=== PATIENT | male | born 1995 | race Caucasian/White ===

== ENCOUNTER 2016-12-08 06:17 | Inpatient (IN) | payer BC, MEDICAID ==
[~2016-12-08] VITALS: Ht 162.6 cm; Wt 100.8 kg
[2016-12-08] MEDS ORDERED: INSLAN SQ (06:35)
[2016-12-08] MEDS ORDERED: INSU100C14 SQ (06:35)
[2016-12-08 06:38] LABS: GLUCOSE COMMENT 1 Doctor Notified; GLUCOSE,POINT OF CARE 483 MG/DL (70-110)
[2016-12-08] MEDS ORDERED: SODIUM CHLORIDE 0.9% 1,000 ML IV ONE (07:00)
[2016-12-08 07:10] LABS: BASOPHILS % (AUTO) 0.4 % (0.0-2.0); EOSINOPHILS % (AUTO) 0.8 % (1.0-6.0); HEMATOCRIT 42.3 % (41-53); HEMOGLOBIN 14.6 g/dL (13.5-17.5); LYMPHOCYTES # (AUTO) 1.7 K/uL (1.0-4.8); LYMPHOCYTES % (AUTO) 11.5 % (22.0-44.0); MEAN CORPUSCULAR HEMOGLOBIN 30.2 pg (26.0-34.0); MEAN CORPUSCULAR HGB CONC 34.6 G/dL (31.0-37.0); MEAN CORPUSCULAR VOLUME 87 fL (80-100); MONOCYTES # (AUTO) 0.7 K/uL (0.1-1.0); NEUTROPHILS # (AUTO) 12.2 K/uL (1.8-7.7); NEUTROPHILS % (AUTO) 82.3 % (40.0-70.0); PLATELET COUNT (AUTO) 297 K/uL (150-450); RED BLOOD CELL COUNT(AUTO) 4.84 MIL/uL (4.50-5.90); RED CELL DISTRIBUTION WIDTH 12.5 % (11.5-14.5); WHITE BLOOD COUNT (AUTO) 14.8 K/uL (4.5-11.0)
[2016-12-08 07:31] LABS: ALANINE AMINOTRANSFERASE 61 U/L (12-78); ALBUMIN 4.1 g/dL (3.4-5.0); ANION GAP 15 mmol/L (8-16); ASPARTATE AMINOTRANSFERASE 49 U/L (15-37); BILIRUBIN,TOTAL 0.9 mg/dL (0.1-1.0); CALCIUM, TOTAL 8.9 mg/dL (8.8-10.5); CARBON DIOXIDE 20 mmol/L (22-29); CHLORIDE 99 mmol/L (98-107); CREATININE 1.24 mg/dL (0.60-1.30); GLOMERULAR FILTR. RATE CALC > 60 mL/min (>60); POTASSIUM 4.4 mmol/L (3.5-5.1); SODIUM SERUM 134 mmol/L (136-145); TOTAL PROTEIN, SERUM 7.8 g/dL (6.4-8.2); UREA NITROGEN, BLOOD 13 mg/dL (7-18)
[2016-12-08 09:03] LABS: GLUCOSE,POINT OF CARE 362 MG/DL (70-110)
[2016-12-08] MEDS ORDERED: MAGNESIUM HYDROXIDE SUSPENSION 30 ML UDCUP PO PRN (10:00)
[2016-12-08] MEDS ORDERED: ZOLPIDEM TARTRATE 10 MG TABLET PO PRN (10:00)
[2016-12-08] MEDS ORDERED: TUBERCULIN, PURIFIED PROTEIN DERIVATIVE 5 TU/0.1 ML SYG ID ONE (10:00)
[2016-12-08] MEDS ORDERED: PROMETHAZINE HCL 25 MG TABLET PO PRN (10:00)
[2016-12-08] MEDS ORDERED: ACETAMINOPHEN 325 MG TABLET PO PRN (10:00)
[2016-12-08] MEDS ORDERED: MAG HYDROX/AL HYDROX/SIMETH ES 30 ML SUSPENSION UDCUP PO PRN (10:00)
[2016-12-08] MEDS ORDERED: QUEtiapine FUMARATE 100 MG TABLET PO PRN (10:00)
[2016-12-08] MEDS ORDERED: GuaiFENesin/D-METHORPHAN [SUGAR-FREE] 200-20MG/10 ML SYRUP UDCUP PO PRN (10:00)
[2016-12-08] MEDS ORDERED: LORazepam 2 MG TABLET PO PRN (10:00)
[2016-12-08] MEDS ORDERED: LOPERAMIDE HCL 2 MG CAPSULE PO PRN (10:00)
[2016-12-08] MEDS ORDERED: HydrOXYzine PAMOATE 50 MG CAPSULE PO PRN (10:00)
[2016-12-08] MEDS ORDERED: DEXTROSE 50%-WATER 25 GM/50 ML SYRINGE IVP PRN (12:00)
[2016-12-08 12:35] VITALS: BP 118/76
[2016-12-08] MEDS ORDERED: INSULIN PUMP HUMALOG CLINICAL PRN (14:00)
[2016-12-08 20:28] LABS: GLUCOSE,POINT OF CARE 156 MG/DL (70-110)
[2016-12-08 20:28] LABS: GLUCOSE COMMENT 1 Juice/Food/D50 Given; GLUCOSE,POINT OF CARE 45 MG/DL (70-110)
[2016-12-08 20:28] LABS: GLUCOSE,POINT OF CARE 259 MG/DL (70-110)
[2016-12-09 05:57] LABS: GLUCOSE,POINT OF CARE 160 MG/DL (70-110)
[2016-12-09 06:02] LABS: ALANINE AMINOTRANSFERASE 50 U/L (12-78); ALBUMIN 3.5 g/dL (3.4-5.0); ANION GAP 8 mmol/L (8-16); ASPARTATE AMINOTRANSFERASE 38 U/L (15-37); BILIRUBIN,TOTAL 0.5 mg/dL (0.1-1.0); CALCIUM, TOTAL 8.4 mg/dL (8.8-10.5); CARBON DIOXIDE 28 mmol/L (22-29); CHLORIDE 105 mmol/L (98-107); CHOL/HDL RATIO 3.9 (4.2-7.3); CREATININE 1.01 mg/dL (0.60-1.30); GLOMERULAR FILTR. RATE CALC > 60 mL/min (>60); POTASSIUM 4.3 mmol/L (3.5-5.1); SODIUM SERUM 141 mmol/L (136-145); THYROID STIMULATING HORMONE 1.17 uIU/mL (0.36-3.74); TOTAL PROTEIN, SERUM 6.7 g/dL (6.4-8.2); UREA NITROGEN, BLOOD 9 mg/dL (7-18)
[2016-12-09 06:09] LABS: BASOPHILS % (AUTO) 0.4 % (0.0-2.0); EOSINOPHILS % (AUTO) 2.9 % (1.0-6.0); HEMATOCRIT 44.5 % (41-53); HEMOGLOBIN 14.9 g/dL (13.5-17.5); LYMPHOCYTES # (AUTO) 4.1 K/uL (1.0-4.8); LYMPHOCYTES % (AUTO) 36.8 % (22.0-44.0); MEAN CORPUSCULAR HEMOGLOBIN 29.9 pg (26.0-34.0); MEAN CORPUSCULAR HGB CONC 33.5 G/dL (31.0-37.0); MEAN CORPUSCULAR VOLUME 89 fL (80-100); MONOCYTES # (AUTO) 0.6 K/uL (0.1-1.0); NEUTROPHILS # (AUTO) 6.2 K/uL (1.8-7.7); NEUTROPHILS % (AUTO) 54.9 % (40.0-70.0); PLATELET COUNT (AUTO) 282 K/uL (150-450); RED BLOOD CELL COUNT(AUTO) 4.99 MIL/uL (4.50-5.90); RED CELL DISTRIBUTION WIDTH 13.1 % (11.5-14.5); WHITE BLOOD COUNT (AUTO) 11.3 K/uL (4.5-11.0)
[2016-12-09 06:48] LABS: HEMOGLOBIN A1C 8.8 % (4.5-6.2)
[2016-12-09] MEDS ORDERED: MULTIVITAMINS WITH MINERALS, THERAPEUTIC TABLET PO SCH (09:00)
[2016-12-09] MEDS ORDERED: FOLIC ACID 1 MG TABLET PO SCH (09:00)
[2016-12-09] MEDS ORDERED: FLUoxetine HCL 20 MG CAPSULE PO SCH (09:00)
[2016-12-09] MEDS: THIAMINE HCL 100 MG TABLET PO SCH ×2 (09:00→09:13)
[2016-12-09] MEDS ORDERED: INSULIN ASPART 100 UNITS/ML SQ PRN ×2 (10:30→15:00)
[2016-12-09 11:13] LABS: GLUCOSE,POINT OF CARE 535 MG/DL (70-110)
[2016-12-09] MEDS ORDERED: INSULIN DETEMIR 100 UNITS/ML SQ SCH ×2 (11:15→21:00)
[2016-12-09] MEDS ORDERED: INSULIN ASPART 100 UNITS/ML SQ ONE ×2 (11:15→12:45)
[2016-12-09 12:27] LABS: GLUCOSE COMMENT 1 Doctor Notified; GLUCOSE,POINT OF CARE > 600 MG/DL (70-110)
[2016-12-09 14:02] LABS: GLUCOSE,POINT OF CARE 540 MG/DL (70-110)
[2016-12-09 14:47] LABS: GLUCOSE,POINT OF CARE 392 MG/DL (70-110)
[2016-12-09] MEDS ORDERED: SODIUM CHLORIDE 0.9% 1,000 ML IV ONE (15:00)
[2016-12-09] MEDS ORDERED: ZOLPIDEM TARTRATE 5 MG TABLET PO PRN (15:00)
[2016-12-09] MEDS ORDERED: MAGNESIUM HYDROXIDE SUSPENSION 30 ML UDCUP PO PRN (15:00)
[2016-12-09] MEDS ORDERED: MORPHINE SULFATE 2 MG/ML SYRINGE IVP PRN (15:00)
[2016-12-09] MEDS ORDERED: DEXTROSE 50%-WATER 25 GM/50 ML SYRINGE IVP PRN (15:00)
[2016-12-09] MEDS ORDERED: ONDANSETRON HCL 4 MG/2 ML VIAL IVP PRN (15:00)
[2016-12-09] MEDS ORDERED: ACETAMINOPHEN 325 MG TABLET PO PRN (15:00)
[2016-12-09] MEDS ORDERED: HYDROCODONE/ACETAMINOPHEN 5-325 MG TABLET PO PRN (15:00)
[2016-12-09] MEDS ORDERED: BISACODYL 10 MG RECTAL RECTAL SUPPOSITORY PR PRN (15:00)
[2016-12-09 16:35] VITALS: BP 164/80
[2016-12-09] MEDS ORDERED: DOCUSATE SODIUM 100 MG CAPSULE PO SCH (21:00)
[2016-12-10] MEDS ORDERED: PANTOPRAZOLE SODIUM 40 MG DR TABLET PO SCH (09:00)
== END 2016-12-09 17:39 | disposition home or self-care (01) | DRG 885 ==
LOC: EMS 06:20 → AHU 09:11 → UNDODISIN 12-09 16:26
PROVIDERS: ADMIT Psychiatry & Neurology Psychiatry; ATTEND Psychiatry & Neurology Psychiatry
DX: F33.9 Major depressive disorder, recurrent, unspecified (principal); R45.851 Suicidal ideations; E10.9 Type 1 diabetes mellitus without complications; D72.829 Elevated white blood cell count, unspecified; E66.9 Obesity, unspecified; H91.90 Unspecified hearing loss, unspecified ear; Z96.41 Presence of insulin pump (external) (internal); Z65.3 Problems related to other legal circumstances; Z79.4 Long term (current) use of insulin; Z68.38 Body mass index [BMI] 38.0-38.9, adult
CPT/HCPCS: 82962; 83036; 84439; 84443; 86592; 96360; 99285; G0480; J1815

== ENCOUNTER 2016-12-09 16:50 | Inpatient (IN) | payer MEDICARE, OTHER ==
[~2016-12-09] VITALS: Ht 162.6 cm; Wt 95.5 kg
[2016-12-09 16:30] VITALS: BP 164/80
[~2016-12-09 16:50] MED LIST: INSLAN SQ; INSU100C14 SQ
[2016-12-09] MEDS ORDERED: MORPHINE SULFATE 2 MG/ML SYRINGE IVP PRN ×2 (19:00→19:45)
[2016-12-09] MEDS ORDERED: ZOLPIDEM TARTRATE 5 MG TABLET PO PRN ×2 (19:00→19:45)
[2016-12-09] MEDS ORDERED: MAGNESIUM HYDROXIDE SUSPENSION 30 ML UDCUP PO PRN ×2 (19:00→19:45)
[2016-12-09] MEDS ORDERED: HYDROCODONE/ACETAMINOPHEN 5-325 MG TABLET PO PRN ×2 (19:00→19:45)
[2016-12-09 19:21] VITALS: BP 157/100
[2016-12-09] MEDS ORDERED: BISACODYL 10 MG RECTAL RECTAL SUPPOSITORY PR PRN (19:45)
[2016-12-09] MEDS ORDERED: SODIUM CHLORIDE 0.9% 1,000 ML IV ONE (19:45)
[2016-12-09] MEDS ORDERED: DEXTROSE 50%-WATER 25 GM/50 ML SYRINGE IVP PRN (19:45)
[2016-12-09] MEDS ORDERED: ONDANSETRON HCL 4 MG/2 ML VIAL IVP PRN (19:45)
[2016-12-09] MEDS ORDERED: ACETAMINOPHEN 325 MG TABLET PO PRN (19:45)
[2016-12-09] MEDS: INSULIN DETEMIR 100 UNITS/ML SQ SCH (20:15)
[2016-12-09] MEDS: INSULIN ASPART 100 UNITS/ML SQ PRN (20:16)
[2016-12-09] MEDS: DOCUSATE SODIUM 100 MG CAPSULE PO SCH (20:17)
[2016-12-09] MEDS ORDERED: DOCUSATE SODIUM 100 MG CAPSULE PO SCH (21:00)
[2016-12-09 22:37] LABS: GLUCOSE,POINT OF CARE 260 MG/DL (70-110)
[2016-12-09 23:33] VITALS: BP 164/83
[2016-12-10] MEDS ORDERED: HEPARIN SODIUM,PORCINE 5,000 UNITS/ML VIAL SQ SCH
[2016-12-10 00:43] LABS: GLUCOSE,POINT OF CARE 234 MG/DL (70-110)
[2016-12-10] MEDS ORDERED: INFLUENZA VIRUS VACCINE QVS 2017-18 (3YR+)/PF 60 MCG/0.5 ML SYRINGE IM ONE (01:15)
[2016-12-10] MEDS ORDERED: PNEUMOCOCCAL VACCINE POLYVALENT 0.5 ML VIAL [PPSV23] IM ONE (01:15)
[2016-12-10 04:25] VITALS: BP 151/97
[2016-12-10] MEDS: INSULIN ASPART 100 UNITS/ML SQ PRN ×4 (06:08→20:45)
[2016-12-10 06:50] LABS: BASOPHILS % (AUTO) 0.4 % (0.0-2.0); EOSINOPHILS % (AUTO) 2.3 % (1.0-6.0); HEMATOCRIT 44.7 % (41-53); HEMOGLOBIN 15.4 g/dL (13.5-17.5); LYMPHOCYTES # (AUTO) 2.9 K/uL (1.0-4.8); LYMPHOCYTES % (AUTO) 23.6 % (22.0-44.0); MEAN CORPUSCULAR HEMOGLOBIN 30.4 pg (26.0-34.0); MEAN CORPUSCULAR HGB CONC 34.4 G/dL (31.0-37.0); MEAN CORPUSCULAR VOLUME 88 fL (80-100); MONOCYTES # (AUTO) 0.6 K/uL (0.1-1.0); MONOCYTES % (AUTO) 5.1 % (2.0-9.0); NEUTROPHILS # (AUTO) 8.5 K/uL (1.8-7.7); NEUTROPHILS % (AUTO) 68.6 % (40.0-70.0); PLATELET COUNT (AUTO) 309 K/uL (150-450); RED BLOOD CELL COUNT(AUTO) 5.07 MIL/uL (4.50-5.90); RED CELL DISTRIBUTION WIDTH 12.6 % (11.5-14.5); WHITE BLOOD COUNT (AUTO) 12.4 K/uL (4.5-11.0)
[2016-12-10 06:57] LABS: ANION GAP 10 mmol/L (8-16); CALCIUM, TOTAL 8.7 mg/dL (8.8-10.5); CARBON DIOXIDE 25 mmol/L (22-29); CHLORIDE 102 mmol/L (98-107); CREATININE 1.04 mg/dL (0.60-1.30); GLOMERULAR FILTR. RATE CALC > 60 mL/min (>60); SODIUM SERUM 137 mmol/L (136-145); UREA NITROGEN, BLOOD 12 mg/dL (7-18)
[2016-12-10 07:12] VITALS: BP 146/87
[2016-12-10 07:20] LABS: HEMOGLOBIN A1C 8.8 % (4.5-6.2)
[2016-12-10 07:33] LABS: GLUCOSE,POINT OF CARE 238 MG/DL (70-110)
[2016-12-10] MEDS: DOCUSATE SODIUM 100 MG CAPSULE PO SCH ×3 (08:11→21:00)
[2016-12-10] MEDS: INSULIN DETEMIR 100 UNITS/ML SQ SCH ×2 (08:12→20:44)
[2016-12-10] MEDS ORDERED: PANTOPRAZOLE SODIUM 40 MG DR TABLET PO SCH ×2 (09:00)
[2016-12-10 11:50] VITALS: BP 158/73
[2016-12-10 15:46] VITALS: BP 135/92
[2016-12-10] MEDS ORDERED: QUEtiapine FUMARATE 100 MG TABLET PO PRN (16:45)
[2016-12-10] MEDS ORDERED: FLUoxetine HCL 20 MG CAPSULE PO SCH (17:00)
[2016-12-10 20:32] VITALS: BP 137/94
[2016-12-10 20:39] LABS: GLUCOSE COMMENT 1 Received Meds; GLUCOSE,POINT OF CARE 271 MG/DL (70-110)
[2016-12-10 20:40] LABS: GLUCOSE,POINT OF CARE 359 MG/DL (70-110)
[2016-12-10 23:41] VITALS: BP 138/96
[2016-12-11 05:00] VITALS: BP 144/88
[2016-12-11] MEDS: INSULIN ASPART 100 UNITS/ML SQ PRN (05:53)
[2016-12-11 05:58] LABS: GLUCOSE COMMENT 1 Received Meds; GLUCOSE,POINT OF CARE 219 MG/DL (70-110)
[2016-12-11 05:58] LABS: GLUCOSE,POINT OF CARE 273 MG/DL (70-110)
[2016-12-11] MEDS ORDERED: LEVO25TA9 PO (07:37)
[2016-12-11 15:21] LABS: GLUCOSE,POINT OF CARE 326 MG/DL (70-110)
== END 2016-12-11 08:35 | disposition left against medical advice (07) | DRG 641 ==
LOC: 5N 16:50
PROVIDERS: ADMIT Internal Medicine; ATTEND Internal Medicine
DX: R73.9 Hyperglycemia, unspecified (principal); E87.1 Hypo-osmolality and hyponatremia; D72.829 Elevated white blood cell count, unspecified; Z53.21 Procedure and treatment not carried out due to patient leaving prior to being seen by health care provider; Z79.4 Long term (current) use of insulin
CPT/HCPCS: 82962; 83036; 90471; J7030

== ENCOUNTER 2016-12-18 12:31 | Inpatient (IN) | payer BC, MEDICAID ==
[~2016-12-18] VITALS: Ht 162.6 cm; Wt 92.1 kg
[~2016-12-18 12:31] MED LIST changes: +LEVO25TA9 PO
[2016-12-18 13:23] LABS: GLUCOSE,POINT OF CARE 344 MG/DL (70-110)
[2016-12-18 15:08] LABS: BASOPHILS % (AUTO) 0.5 % (0.0-2.0); EOSINOPHILS % (AUTO) 1.2 % (1.0-6.0); HEMATOCRIT 42.8 % (41-53); HEMOGLOBIN 14.8 g/dL (13.5-17.5); LYMPHOCYTES # (AUTO) 1.9 K/uL (1.0-4.8); LYMPHOCYTES % (AUTO) 18.8 % (22.0-44.0); MEAN CORPUSCULAR HEMOGLOBIN 30.3 pg (26.0-34.0); MEAN CORPUSCULAR HGB CONC 34.6 G/dL (31.0-37.0); MEAN CORPUSCULAR VOLUME 87 fL (80-100); MONOCYTES # (AUTO) 0.5 K/uL (0.1-1.0); MONOCYTES % (AUTO) 5.2 % (2.0-9.0); NEUTROPHILS # (AUTO) 7.6 K/uL (1.8-7.7); NEUTROPHILS % (AUTO) 74.3 % (40.0-70.0); PLATELET COUNT (AUTO) 297 K/uL (150-450)
[2016-12-18 15:18] LABS: ANION GAP 8 mmol/L (8-16); CALCIUM, TOTAL 8.8 mg/dL (8.8-10.5); CARBON DIOXIDE 29 mmol/L (22-29); CHLORIDE 102 mmol/L (98-107); CREATININE 1.27 mg/dL (0.60-1.30); GLOMERULAR FILTR. RATE CALC > 60 mL/min (>60); GLUCOSE,RANDOM 393 mg/dL (70-110); POTASSIUM 4.1 mmol/L (3.5-5.1); SODIUM SERUM 139 mmol/L (136-145); UREA NITROGEN, BLOOD 12 mg/dL (7-18)
[2016-12-18 15:24] LABS: ALANINE AMINOTRANSFERASE 70 U/L (12-78); ALBUMIN 3.8 g/dL (3.4-5.0); ALKALINE PHOSPHATASE 128 U/L (46-116); ASPARTATE AMINOTRANSFERASE 59 U/L (15-37); BILIRUBIN,TOTAL 0.2 mg/dL (0.1-1.0); TOTAL PROTEIN, SERUM 7.7 g/dL (6.4-8.2)
[2016-12-18 15:37] LABS: AMPHET/METH SCREEN,URINE NEGATIVE (NEGATIVE); BARBITURATE SCREEN, URINE NEGATIVE (NEGATIVE); BENZODIAZEPINES SCREEN,URINE NEGATIVE (NEGATIVE); CANNABINOID SCREEN,URINE NEGATIVE (NEGATIVE); COCAINE SCREEN,URINE NEGATIVE (NEGATIVE); METHADONE SCREEN, URINE NEGATIVE (NEGATIVE); OPIATE SCREEN,URINE NEGATIVE (NEGATIVE); PHENCYCLIDINE SCREEN,URINE NEGATIVE (NEGATIVE)
[2016-12-18] MEDS ORDERED: INSULIN ASPART 100 UNITS/ML SQ ONE ×2 (15:45→17:45)
[2016-12-18] MEDS ORDERED: INSULIN GLARGINE,HUM.REC.ANLOG 100 UNITS/ML SQ ONE (15:45)
[2016-12-18] MEDS ORDERED: ACETAMINOPHEN 325 MG TABLET PO PRN (16:00)
[2016-12-18] MEDS ORDERED: MAG HYDROX/AL HYDROX/SIMETH ES 30 ML SUSPENSION UDCUP PO PRN (16:00)
[2016-12-18] MEDS ORDERED: GuaiFENesin/D-METHORPHAN [SUGAR-FREE] 200-20MG/10 ML SYRUP UDCUP PO PRN (16:00)
[2016-12-18] MEDS ORDERED: HydrOXYzine PAMOATE 50 MG CAPSULE PO PRN (16:00)
[2016-12-18] MEDS ORDERED: LOPERAMIDE HCL 2 MG CAPSULE PO PRN (16:00)
[2016-12-18] MEDS ORDERED: MAGNESIUM HYDROXIDE SUSPENSION 30 ML UDCUP PO PRN (16:00)
[2016-12-18] MEDS ORDERED: HALOPERIDOL 5 MG TABLET PO PRN (16:00)
[2016-12-18] MEDS ORDERED: PROMETHAZINE HCL 25 MG TABLET PO PRN (16:00)
[2016-12-18] MEDS ORDERED: QUEtiapine FUMARATE 100 MG TABLET PO ONE (16:30)
[2016-12-18] MEDS ORDERED: LORazepam 1 MG TABLET PO ONE (16:30)
[2016-12-18 16:48] LABS: GLUCOSE,POINT OF CARE 345 MG/DL (70-110)
[2016-12-18 17:18] LABS: GLUCOSE,POINT OF CARE 325 MG/DL (70-110)
[2016-12-18] MEDS ORDERED: INSULIN DETEMIR 100 UNITS/ML SQ SCH (17:35)
[2016-12-18] MEDS ORDERED: INSULIN REGULAR, HUMAN 100 UNITS/ML SQ PRN (17:45)
[2016-12-18 18:59] VITALS: BP 136/88
[2016-12-18] MEDS: THIAMINE HCL 100 MG TABLET PO SCH (19:19)
[2016-12-18 19:58] LABS: GLUCOMETER DEV NAME(LOC) 3EX 1; GLUCOSE,POINT OF CARE 301 MG/DL (70-110)
[2016-12-18] MEDS ORDERED: DEXTROSE 50%-WATER 25 GM/50 ML SYRINGE IVP PRN (20:00)
[2016-12-18 20:12] LABS: APPEARANCE,URINE CLEAR (CLEAR); BILIRUBIN,URINE NEGATIVE (NEGATIVE); GLUCOSE, URINE (UA) >=1000 mg/dL (NEGATIVE); KETONES,URINE 40 mg/dL (NEGATIVE); LEUKOCYTE ESTERASE ,URINE NEGATIVE (NEGATIVE); NITRATE,URINE NEGATIVE (NEGATIVE); OCCULT BLOOD,URINE NEGATIVE (NEGATIVE); PROTEIN,URINE NEGATIVE (NEGATIVE); UROBILINOGEN,URINE 0.2 mg/dL (<=1.0)
[2016-12-18 20:32] LABS: MUCUS,URINE Moderate LPF (None Seen); SQUAMOUS EPITHELIAL CELL,UR Few /LPF (None Seen)
[2016-12-18 20:35] LABS: URIC ACID CRYSTALS,URINE Moderate /LPF (None Seen)
[2016-12-18 20:38] LABS: BACTERIA,URINE Rare /HPF (None Seen); RBC,URINE None Seen /HPF (0-2); WBC,URINE 0-2 /HPF (0-5)
[2016-12-18] MEDS ORDERED: HALOPERIDOL 10 MG TABLET PO SCH (21:00)
[2016-12-18] MEDS: BENZTROPINE MESYLATE 0.5 MG TABLET PO SCH (21:11)
[2016-12-18] MEDS: INSULIN ASPART 100 UNITS/ML SQ PRN (21:23)
[2016-12-18 21:24] LABS: GLUCOMETER DEV NAME(LOC) 3EX 1; GLUCOSE,POINT OF CARE 260 MG/DL (70-110)
[2016-12-19 05:39] LABS: GLUCOMETER DEV NAME(LOC) 3EI B; GLUCOSE,POINT OF CARE 456 MG/DL (70-110)
[2016-12-19 05:57] LABS: BASOPHILS % (AUTO) 0.7 % (0.0-2.0); EOSINOPHILS % (AUTO) 3.2 % (1.0-6.0); HEMOGLOBIN 14.3 g/dL (13.5-17.5); LYMPHOCYTES # (AUTO) 2.7 K/uL (1.0-4.8); LYMPHOCYTES % (AUTO) 32.9 % (22.0-44.0); MEAN CORPUSCULAR HEMOGLOBIN 30.2 pg (26.0-34.0); MEAN CORPUSCULAR HGB CONC 34.1 G/dL (31.0-37.0); MEAN CORPUSCULAR VOLUME 88 fL (80-100); MONOCYTES # (AUTO) 0.6 K/uL (0.1-1.0); MONOCYTES % (AUTO) 7.4 % (2.0-9.0); NEUTROPHILS # (AUTO) 4.7 K/uL (1.8-7.7); NEUTROPHILS % (AUTO) 55.8 % (40.0-70.0); PLATELET COUNT (AUTO) 258 K/uL (150-450); RED BLOOD CELL COUNT(AUTO) 4.75 MIL/uL (4.50-5.90); RED CELL DISTRIBUTION WIDTH 12.9 % (11.5-14.5)
[2016-12-19 06:35] VITALS: BP 146/86
[2016-12-19 06:40] LABS: ALANINE AMINOTRANSFERASE 70 U/L (12-78); ALBUMIN 3.3 g/dL (3.4-5.0); ALKALINE PHOSPHATASE 105 U/L (46-116); ANION GAP 6 mmol/L (8-16); ASPARTATE AMINOTRANSFERASE 51 U/L (15-37); BILIRUBIN,TOTAL 0.4 mg/dL (0.1-1.0); CALCIUM, TOTAL 8.5 mg/dL (8.8-10.5); CARBON DIOXIDE 29 mmol/L (22-29); CHLORIDE 104 mmol/L (98-107); CHOL/HDL RATIO 4.5 (4.2-7.3); CHOLESTEROL 157 mg/dL (131-200); CREATININE 1.01 mg/dL (0.60-1.30); FREE T4 (FREE THYROXINE) 0.96 ng/dL (0.76-1.46); GLOMERULAR FILTR. RATE CALC > 60 mL/min (>60); GLUCOSE,RANDOM 329 mg/dL (70-110); HDL CHOLESTEROL 35 mg/dL (40-60); LDL CHOL (CALC.) 96 mg/dL (0-130); POTASSIUM 4.6 mmol/L (3.5-5.1); SODIUM SERUM 139 mmol/L (136-145); THYROID STIMULATING HORMONE 4.28 uIU/mL (0.36-3.74); TOTAL PROTEIN, SERUM 6.7 g/dL (6.4-8.2); TRIGLYCERIDES 131 mg/dL (15-150); UREA NITROGEN, BLOOD 15 mg/dL (7-18)
[2016-12-19 06:51] LABS: HEMOGLOBIN A1C 9.2 % (4.5-6.2)
[2016-12-19] MEDS ORDERED: INSULIN ASPART 100 UNITS/ML SQ ONE (07:30)
[2016-12-19 08:00] VITALS: BP 148/112
[2016-12-19] MEDS: FOLIC ACID 1 MG TABLET PO SCH (08:07)
[2016-12-19] MEDS: MULTIVITAMINS WITH MINERALS, THERAPEUTIC TABLET PO SCH (08:07)
[2016-12-19] MEDS: BENZTROPINE MESYLATE 0.5 MG TABLET PO SCH ×2 (08:07→17:43)
[2016-12-19] MEDS: THIAMINE HCL 100 MG TABLET PO SCH ×2 (08:07→17:43)
[2016-12-19] MEDS: INSULIN DETEMIR 100 UNITS/ML SQ SCH ×2 (09:00→17:40)
[2016-12-19] MEDS ORDERED: LamoTRIgine 25 MG TABLET PO SCH (09:00)
[2016-12-19 11:03] VITALS: BP 142/70
[2016-12-19 11:28] LABS: GLUCOMETER DEV NAME(LOC) 3EX 1; GLUCOSE,POINT OF CARE 218 MG/DL (70-110)
[2016-12-19] MEDS: INSULIN ASPART 100 UNITS/ML SQ PRN ×2 (11:37→17:45)
[2016-12-19] MEDS ORDERED: LORazepam 2 MG/ML VIAL IM ONE (12:00)
[2016-12-19] MEDS ORDERED: DiphenhydrAMINE HCL 50 MG/ML VIAL IM ONE (12:00)
[2016-12-19] MEDS ORDERED: HALOPERIDOL LACTATE 5 MG/ML VIAL IM ONE (12:00)
[2016-12-19] MEDS ORDERED: DiphenhydrAMINE HCL 50 MG/ML VIAL ONE (12:04)
[2016-12-19] MEDS ORDERED: HALOPERIDOL LACTATE 5 MG/ML VIAL ONE (12:04)
[2016-12-19] MEDS ORDERED: LORazepam 2 MG/ML VIAL ONE (12:05)
[2016-12-19 16:57] LABS: GLUCOMETER DEV NAME(LOC) 3EC; GLUCOSE,POINT OF CARE 292 MG/DL (70-110)
[2016-12-19] MEDS: LORazepam 2 MG TABLET PO PRN (18:45)
[2016-12-19] MEDS: DIVALPROEX SODIUM 500 MG ER TABLET PO SCH (21:01)
[2016-12-19] MEDS: HALOPERIDOL 10 MG TABLET PO SCH (21:02)
[2016-12-19 21:57] LABS: GLUCOMETER DEV NAME(LOC) 3EC; GLUCOSE,POINT OF CARE 311 MG/DL (70-110)
[2016-12-20 06:28] LABS: GLUCOMETER DEV NAME(LOC) 3EC; GLUCOSE,POINT OF CARE 353 MG/DL (70-110)
[2016-12-20] MEDS: LEVOTHYROXINE SODIUM 25 MCG TABLET PO SCH (07:00)
[2016-12-20] MEDS: INSULIN ASPART 100 UNITS/ML SQ PRN ×4 (07:32→21:30)
[2016-12-20] MEDS: MULTIVITAMINS WITH MINERALS, THERAPEUTIC TABLET PO SCH (08:34)
[2016-12-20] MEDS: FOLIC ACID 1 MG TABLET PO SCH (08:35)
[2016-12-20] MEDS: BENZTROPINE MESYLATE 0.5 MG TABLET PO SCH ×2 (08:35→16:16)
[2016-12-20] MEDS: THIAMINE HCL 100 MG TABLET PO SCH ×2 (08:35→16:16)
[2016-12-20] MEDS: INSULIN DETEMIR 100 UNITS/ML SQ SCH ×2 (08:56→17:55)
[2016-12-20 08:57] LABS: GLUCOMETER DEV NAME(LOC) 3EC; GLUCOSE,POINT OF CARE 347 MG/DL (70-110)
[2016-12-20 09:00] VITALS: BP 162/83
[2016-12-20] MEDS: LORazepam 2 MG TABLET PO PRN (09:29)
[2016-12-20 12:48] LABS: GLUCOMETER DEV NAME(LOC) 3EC; GLUCOSE,POINT OF CARE 282 MG/DL (70-110)
[2016-12-20] MEDS ORDERED: BENZTROPINE MESYLATE 1 MG/ML 2 ML VIAL IM ONE (16:30)
[2016-12-20 16:33] LABS: GLUCOMETER DEV NAME(LOC) 3EC; GLUCOSE,POINT OF CARE 346 MG/DL (70-110)
[2016-12-20 17:48] VITALS: BP 125/85
[2016-12-20] MEDS: DIVALPROEX SODIUM 500 MG ER TABLET PO SCH (20:13)
[2016-12-20] MEDS: HALOPERIDOL 10 MG TABLET PO SCH (20:14)
[2016-12-20 20:48] LABS: GLUCOMETER DEV NAME(LOC) 3EC; GLUCOSE,POINT OF CARE 468 MG/DL (70-110)
[2016-12-21 05:01] VITALS: BP 137/85
[2016-12-21 06:28] LABS: GLUCOMETER DEV NAME(LOC) 3EC; GLUCOSE,POINT OF CARE 293 MG/DL (70-110)
[2016-12-21] MEDS: LEVOTHYROXINE SODIUM 25 MCG TABLET PO SCH (06:36)
[2016-12-21] MEDS: INSULIN ASPART 100 UNITS/ML SQ PRN (06:58)
[2016-12-21 08:30] VITALS: BP 144/92
[2016-12-21] MEDS: THIAMINE HCL 100 MG TABLET PO SCH ×2 (08:39→16:08)
[2016-12-21] MEDS: MULTIVITAMINS WITH MINERALS, THERAPEUTIC TABLET PO SCH (08:39)
[2016-12-21] MEDS: FOLIC ACID 1 MG TABLET PO SCH (08:39)
[2016-12-21] MEDS: BENZTROPINE MESYLATE 2 MG TABLET PO SCH ×2 (08:40→16:08)
[2016-12-21 08:42] LABS: GLUCOMETER DEV NAME(LOC) 3EC; GLUCOSE,POINT OF CARE 367 MG/DL (70-110)
[2016-12-21] MEDS: INSULIN DETEMIR 100 UNITS/ML SQ SCH ×2 (08:52→17:05)
[2016-12-21] MEDS: INSULIN ASPART 100 UNITS/ML SQ SCH ×2 (11:41→17:05)
[2016-12-21 11:57] LABS: GLUCOMETER DEV NAME(LOC) 3EC; GLUCOSE,POINT OF CARE 274 MG/DL (70-110)
[2016-12-21] MEDS: LORazepam 2 MG TABLET PO PRN (16:08)
[2016-12-21 16:22] LABS: GLUCOMETER DEV NAME(LOC) 3EC; GLUCOSE,POINT OF CARE 335 MG/DL (70-110)
[2016-12-21] MEDS: HALOPERIDOL 10 MG TABLET PO SCH (20:10)
[2016-12-21] MEDS: DIVALPROEX SODIUM 500 MG ER TABLET PO SCH (20:10)
[2016-12-21 20:47] LABS: GLUCOMETER DEV NAME(LOC) 3EC; GLUCOSE,POINT OF CARE 485 MG/DL (70-110)
[2016-12-21] MEDS ORDERED: INSULIN ASPART 100 UNITS/ML SQ ONE (21:00)
[2016-12-21 22:15] VITALS: BP 132/72
[2016-12-22 04:04] VITALS: BP 150/96
[2016-12-22 06:22] LABS: GLUCOMETER DEV NAME(LOC) 3EC; GLUCOSE,POINT OF CARE 149 MG/DL (70-110)
[2016-12-22] MEDS: LEVOTHYROXINE SODIUM 25 MCG TABLET PO SCH (06:47)
[2016-12-22] MEDS ORDERED: INSULIN ASPART 100 UNITS/ML SQ SCH ×4 (07:00→17:00)
[2016-12-22 08:05] VITALS: BP 134/82
[2016-12-22] MEDS: THIAMINE HCL 100 MG TABLET PO SCH ×2 (08:22→16:27)
[2016-12-22] MEDS: FOLIC ACID 1 MG TABLET PO SCH (08:22)
[2016-12-22] MEDS: BENZTROPINE MESYLATE 2 MG TABLET PO SCH ×2 (08:22→16:27)
[2016-12-22] MEDS: MULTIVITAMINS WITH MINERALS, THERAPEUTIC TABLET PO SCH (08:22)
[2016-12-22] MEDS: INSULIN DETEMIR 100 UNITS/ML SQ SCH (09:12)
[2016-12-22 11:22] LABS: GLUCOMETER DEV NAME(LOC) 3EC; GLUCOSE,POINT OF CARE 366 MG/DL (70-110)
[2016-12-22] MEDS: LORazepam 2 MG TABLET PO PRN (16:26)
[2016-12-22 16:42] LABS: GLUCOMETER DEV NAME(LOC) 3EC; GLUCOSE,POINT OF CARE 391 MG/DL (70-110)
[2016-12-22] MEDS ORDERED: INSULIN DETEMIR 100 UNITS/ML SQ SCH (17:00)
[2016-12-22 17:46] VITALS: BP 148/92
[2016-12-22] MEDS: DIVALPROEX SODIUM 500 MG ER TABLET PO SCH (20:31)
[2016-12-22 20:33] LABS: GLUCOMETER DEV NAME(LOC) 3EC; GLUCOSE,POINT OF CARE 318 MG/DL (70-110)
[2016-12-22] MEDS ORDERED: INSULIN ASPART 100 UNITS/ML SQ ONE (20:45)
[2016-12-22] MEDS ORDERED: HALOPERIDOL 10 MG TABLET PO SCH (21:00)
[2016-12-23 00:30] VITALS: BP 124/85
[2016-12-23 06:07] LABS: GLUCOMETER DEV NAME(LOC) 3EC; GLUCOSE,POINT OF CARE 291 MG/DL (70-110)
[2016-12-23] MEDS: INSULIN ASPART 100 UNITS/ML SQ SCH ×3 (07:04→17:59)
[2016-12-23] MEDS: LEVOTHYROXINE SODIUM 25 MCG TABLET PO SCH (07:05)
[2016-12-23] MEDS: THIAMINE HCL 100 MG TABLET PO SCH ×2 (08:26→17:59)
[2016-12-23] MEDS: BENZTROPINE MESYLATE 2 MG TABLET PO SCH ×2 (08:26→17:59)
[2016-12-23] MEDS: FOLIC ACID 1 MG TABLET PO SCH (08:26)
[2016-12-23] MEDS: MULTIVITAMINS WITH MINERALS, THERAPEUTIC TABLET PO SCH (08:26)
[2016-12-23] MEDS ORDERED: INSULIN DETEMIR 100 UNITS/ML SQ SCH (09:00)
[2016-12-23 10:23] VITALS: BP 122/78
[2016-12-23 11:28] LABS: GLUCOMETER DEV NAME(LOC) 3EC; GLUCOSE,POINT OF CARE 373 MG/DL (70-110)
[2016-12-23] MEDS: INSULIN ASPART 100 UNITS/ML SQ PRN ×3 (11:49→21:45)
[2016-12-23 17:00] VITALS: BP 139/71
[2016-12-23 17:58] LABS: GLUCOMETER DEV NAME(LOC) 3EC; GLUCOSE,POINT OF CARE 277 MG/DL (70-110)
[2016-12-23] MEDS: INSULIN DETEMIR 100 UNITS/ML SQ SCH (17:59)
[2016-12-23] MEDS: DIVALPROEX SODIUM 500 MG ER TABLET PO SCH (20:30)
[2016-12-23 20:42] LABS: GLUCOMETER DEV NAME(LOC) 3EC; GLUCOSE,POINT OF CARE 204 MG/DL (70-110)
[2016-12-23] MEDS ORDERED: FluPHENAZine HCL 10 MG TABLET PO SCH (21:00)
[2016-12-24] MEDS: ZOLPIDEM TARTRATE 10 MG TABLET PO PRN (00:15)
[2016-12-24 00:38] VITALS: BP 135/91
[2016-12-24 06:17] LABS: GLUCOMETER DEV NAME(LOC) 3EC; GLUCOSE,POINT OF CARE 171 MG/DL (70-110)
[2016-12-24] MEDS: INSULIN ASPART 100 UNITS/ML SQ SCH ×3 (07:05→17:34)
[2016-12-24] MEDS: INSULIN ASPART 100 UNITS/ML SQ PRN ×4 (07:06→20:54)
[2016-12-24] MEDS: LEVOTHYROXINE SODIUM 25 MCG TABLET PO SCH (07:06)
[2016-12-24] MEDS: FOLIC ACID 1 MG TABLET PO SCH (08:08)
[2016-12-24] MEDS: THIAMINE HCL 100 MG TABLET PO SCH ×2 (08:08→17:36)
[2016-12-24] MEDS: BENZTROPINE MESYLATE 2 MG TABLET PO SCH ×2 (08:08→17:35)
[2016-12-24] MEDS: MULTIVITAMINS WITH MINERALS, THERAPEUTIC TABLET PO SCH (08:08)
[2016-12-24] MEDS: INSULIN DETEMIR 100 UNITS/ML SQ SCH ×2 (08:41→17:34)
[2016-12-24 11:53] LABS: GLUCOMETER DEV NAME(LOC) 3EC; GLUCOSE,POINT OF CARE 228 MG/DL (70-110)
[2016-12-24] MEDS: FluPHENAZine HCL 5 MG TABLET PO PRN (12:48)
[2016-12-24] MEDS: LORazepam 2 MG TABLET PO PRN (16:03)
[2016-12-24 16:07] LABS: GLUCOMETER DEV NAME(LOC) 3EC; GLUCOSE,POINT OF CARE 213 MG/DL (70-110)
[2016-12-24] MEDS: DIVALPROEX SODIUM 500 MG ER TABLET PO SCH (20:49)
[2016-12-24 20:52] LABS: GLUCOMETER DEV NAME(LOC) 3EC; GLUCOSE,POINT OF CARE 181 MG/DL (70-110)
[2016-12-24] MEDS ORDERED: FluPHENAZine HCL 5 MG TABLET PO SCH (21:00)
[2016-12-25 05:36] VITALS: BP 130/78
[2016-12-25 06:02] LABS: GLUCOMETER DEV NAME(LOC) 3EC; GLUCOSE,POINT OF CARE 293 MG/DL (70-110)
[2016-12-25] MEDS: LEVOTHYROXINE SODIUM 25 MCG TABLET PO SCH (07:08)
[2016-12-25] MEDS: INSULIN ASPART 100 UNITS/ML SQ SCH ×3 (07:09→17:01)
[2016-12-25] MEDS: INSULIN ASPART 100 UNITS/ML SQ PRN (07:18)
[2016-12-25 08:05] VITALS: BP 144/99
[2016-12-25] MEDS: BENZTROPINE MESYLATE 2 MG TABLET PO SCH ×2 (08:10→16:25)
[2016-12-25] MEDS: MULTIVITAMINS WITH MINERALS, THERAPEUTIC TABLET PO SCH (08:10)
[2016-12-25] MEDS: THIAMINE HCL 100 MG TABLET PO SCH ×2 (08:10→16:26)
[2016-12-25] MEDS: FluPHENAZine HCL 5 MG TABLET PO PRN (08:10)
[2016-12-25] MEDS: FOLIC ACID 1 MG TABLET PO SCH (08:10)
[2016-12-25] MEDS: INSULIN DETEMIR 100 UNITS/ML SQ SCH ×2 (08:54→17:00)
[2016-12-25 11:43] LABS: GLUCOMETER DEV NAME(LOC) 3EC; GLUCOSE,POINT OF CARE 340 MG/DL (70-110)
[2016-12-25] MEDS: CarBAMazepine 200 MG TABLET PO SCH (17:11)
[2016-12-25 18:17] VITALS: BP 138/98
[2016-12-25] MEDS: DIVALPROEX SODIUM 500 MG ER TABLET PO SCH (20:16)
[2016-12-25] MEDS ORDERED: INSULIN ASPART 100 UNITS/ML SQ ONE (20:45)
[2016-12-25 20:57] LABS: GLUCOMETER DEV NAME(LOC) 3EC; GLUCOSE,POINT OF CARE 334 MG/DL (70-110)
[2016-12-25 20:57] LABS: GLUCOMETER DEV NAME(LOC) 3EC; GLUCOSE,POINT OF CARE 348 MG/DL (70-110)
[2016-12-25] MEDS ORDERED: FluPHENAZine HCL 10 MG TABLET PO SCH (21:00)
[2016-12-25] MEDS: ZOLPIDEM TARTRATE 10 MG TABLET PO PRN (23:59)
[2016-12-26 03:18] VITALS: BP 150/84
[2016-12-26 05:58] LABS: GLUCOMETER DEV NAME(LOC) 3EC; GLUCOSE,POINT OF CARE 252 MG/DL (70-110)
[2016-12-26] MEDS: LEVOTHYROXINE SODIUM 25 MCG TABLET PO SCH (07:20)
[2016-12-26] MEDS: INSULIN ASPART 100 UNITS/ML SQ SCH ×4 (07:27→21:31)
[2016-12-26 08:00] VITALS: BP 156/96
[2016-12-26] MEDS: BENZTROPINE MESYLATE 2 MG TABLET PO SCH ×2 (08:27→16:18)
[2016-12-26] MEDS: FOLIC ACID 1 MG TABLET PO SCH (08:28)
[2016-12-26] MEDS: MULTIVITAMINS WITH MINERALS, THERAPEUTIC TABLET PO SCH (08:28)
[2016-12-26] MEDS: THIAMINE HCL 100 MG TABLET PO SCH ×2 (08:28→16:18)
[2016-12-26] MEDS: CarBAMazepine 200 MG TABLET PO SCH ×2 (08:28→16:18)
[2016-12-26] MEDS: INSULIN DETEMIR 100 UNITS/ML SQ SCH ×3 (08:32→18:00)
[2016-12-26 11:38] LABS: GLUCOMETER DEV NAME(LOC) 3EC; GLUCOSE,POINT OF CARE 264 MG/DL (70-110)
[2016-12-26] MEDS: FluPHENAZine HCL 5 MG TABLET PO PRN ×2 (12:58→16:19)
[2016-12-26 14:27] LABS: GLUCOMETER DEV NAME(LOC) 3EC; GLUCOSE,POINT OF CARE 443 MG/DL (70-110)
[2016-12-26] MEDS ORDERED: INSULIN ASPART 100 UNITS/ML SQ ONE ×2 (16:00→21:30)
[2016-12-26] MEDS: LORazepam 2 MG TABLET PO PRN (16:20)
[2016-12-26 17:31] LABS: GLUCOMETER DEV NAME(LOC) 3EC; GLUCOSE,POINT OF CARE 266 MG/DL (70-110)
[2016-12-26 19:22] VITALS: BP 142/88
[2016-12-26 20:47] LABS: GLUCOMETER DEV NAME(LOC) 3EC; GLUCOSE,POINT OF CARE 302 MG/DL (70-110)
[2016-12-26] MEDS: FluPHENAZine HCL 10 MG TABLET PO SCH (21:20)
[2016-12-26] MEDS: DIVALPROEX SODIUM 500 MG ER TABLET PO SCH (21:21)
[2016-12-27 00:46] VITALS: BP 137/83
[2016-12-27 06:12] LABS: GLUCOMETER DEV NAME(LOC) 3EC; GLUCOSE,POINT OF CARE 220 MG/DL (70-110)
[2016-12-27] MEDS: LEVOTHYROXINE SODIUM 25 MCG TABLET PO SCH (06:54)
[2016-12-27] MEDS: INSULIN ASPART 100 UNITS/ML SQ SCH ×2 (07:09→17:31)
[2016-12-27 08:00] VITALS: BP 167/103
[2016-12-27] MEDS: MULTIVITAMINS WITH MINERALS, THERAPEUTIC TABLET PO SCH (10:36)
[2016-12-27] MEDS: THIAMINE HCL 100 MG TABLET PO SCH ×2 (10:36→16:29)
[2016-12-27] MEDS: AmLODIPine BESYLATE 2.5 MG TABLET PO SCH (10:36)
[2016-12-27] MEDS: FOLIC ACID 1 MG TABLET PO SCH (10:37)
[2016-12-27] MEDS: CarBAMazepine 200 MG TABLET PO SCH ×2 (10:37→16:29)
[2016-12-27] MEDS: BENZTROPINE MESYLATE 2 MG TABLET PO SCH ×2 (10:37→16:29)
[2016-12-27] MEDS: INSULIN DETEMIR 100 UNITS/ML SQ SCH ×2 (10:41→17:31)
[2016-12-27 12:03] LABS: GLUCOMETER DEV NAME(LOC) 3EC; GLUCOSE,POINT OF CARE 257 MG/DL (70-110)
[2016-12-27] MEDS: LORazepam 2 MG TABLET PO PRN (16:27)
[2016-12-27 17:22] LABS: GLUCOMETER DEV NAME(LOC) 3EC; GLUCOSE,POINT OF CARE 399 MG/DL (70-110)
[2016-12-27 22:13] LABS: GLUCOMETER DEV NAME(LOC) 3EC; GLUCOSE,POINT OF CARE 327 MG/DL (70-110)
[2016-12-27] MEDS: DIVALPROEX SODIUM 500 MG ER TABLET PO SCH (22:16)
[2016-12-27] MEDS: FluPHENAZine HCL 10 MG TABLET PO SCH (22:16)
[2016-12-28 06:24] LABS: GLUCOMETER DEV NAME(LOC) 3EC; GLUCOSE,POINT OF CARE 261 MG/DL (70-110)
[2016-12-28] MEDS: LEVOTHYROXINE SODIUM 25 MCG TABLET PO SCH (06:55)
[2016-12-28] MEDS: INSULIN ASPART 100 UNITS/ML SQ SCH ×3 (06:58→17:17)
[2016-12-28 08:00] VITALS: BP 140/76
[2016-12-28] MEDS: AmLODIPine BESYLATE 2.5 MG TABLET PO SCH (09:27)
[2016-12-28] MEDS: THIAMINE HCL 100 MG TABLET PO SCH (09:27)
[2016-12-28] MEDS: CarBAMazepine 200 MG TABLET PO SCH ×2 (09:27→16:18)
[2016-12-28] MEDS: MULTIVITAMINS WITH MINERALS, THERAPEUTIC TABLET PO SCH (09:27)
[2016-12-28] MEDS: BENZTROPINE MESYLATE 2 MG TABLET PO SCH ×2 (09:28→16:18)
[2016-12-28] MEDS: FOLIC ACID 1 MG TABLET PO SCH (09:28)
[2016-12-28] MEDS: INSULIN DETEMIR 100 UNITS/ML SQ SCH ×2 (09:59→17:16)
[2016-12-28 11:54] LABS: GLUCOMETER DEV NAME(LOC) 3EC; GLUCOSE,POINT OF CARE 261 MG/DL (70-110)
[2016-12-28] MEDS: LORazepam 2 MG TABLET PO PRN (16:18)
[2016-12-28 17:04] LABS: GLUCOMETER DEV NAME(LOC) 3EC; GLUCOSE,POINT OF CARE 310 MG/DL (70-110)
[2016-12-28 19:00] VITALS: BP 149/87
[2016-12-28 20:19] LABS: GLUCOMETER DEV NAME(LOC) 3EC; GLUCOSE,POINT OF CARE 356 MG/DL (70-110)
[2016-12-28] MEDS: FluPHENAZine HCL 10 MG TABLET PO SCH (22:03)
[2016-12-28] MEDS: DIVALPROEX SODIUM 500 MG ER TABLET PO SCH (22:03)
[2016-12-29 06:26] LABS: GLUCOMETER DEV NAME(LOC) 3EC; GLUCOSE,POINT OF CARE 273 MG/DL (70-110)
[2016-12-29] MEDS: LEVOTHYROXINE SODIUM 25 MCG TABLET PO SCH (06:56)
[2016-12-29] MEDS: INSULIN ASPART 100 UNITS/ML SQ SCH ×3 (06:57→17:39)
[2016-12-29 08:34] VITALS: BP 143/111
[2016-12-29] MEDS: MULTIVITAMINS WITH MINERALS, THERAPEUTIC TABLET PO SCH (08:53)
[2016-12-29] MEDS: CarBAMazepine 200 MG TABLET PO SCH ×2 (08:53→17:36)
[2016-12-29] MEDS: BENZTROPINE MESYLATE 2 MG TABLET PO SCH ×2 (08:53→17:36)
[2016-12-29] MEDS: AmLODIPine BESYLATE 2.5 MG TABLET PO SCH (08:53)
[2016-12-29] MEDS: INSULIN DETEMIR 100 UNITS/ML SQ SCH ×2 (09:10→17:38)
[2016-12-29 12:09] LABS: GLUCOMETER DEV NAME(LOC) 3EC; GLUCOSE,POINT OF CARE 221 MG/DL (70-110)
[2016-12-29 13:27] LABS: GLUCOMETER DEV NAME(LOC) 3EC; GLUCOSE,POINT OF CARE 265 MG/DL (70-110)
[2016-12-29 16:30] VITALS: BP 136/94
[2016-12-29 17:07] LABS: GLUCOMETER DEV NAME(LOC) 3EC; GLUCOSE,POINT OF CARE 215 MG/DL (70-110)
[2016-12-29] MEDS: FluPHENAZine HCL 10 MG TABLET PO SCH (20:49)
[2016-12-29] MEDS: DIVALPROEX SODIUM 500 MG ER TABLET PO SCH (20:49)
[2016-12-29 21:02] LABS: GLUCOMETER DEV NAME(LOC) 3EC; GLUCOSE,POINT OF CARE 240 MG/DL (70-110)
[2016-12-30 06:42] LABS: GLUCOMETER DEV NAME(LOC) 3EC; GLUCOSE,POINT OF CARE 279 MG/DL (70-110)
[2016-12-30] MEDS: LEVOTHYROXINE SODIUM 25 MCG TABLET PO SCH (07:03)
[2016-12-30] MEDS: INSULIN ASPART 100 UNITS/ML SQ SCH ×3 (07:04→17:36)
[2016-12-30 08:04] VITALS: BP 167/102
[2016-12-30] MEDS: MULTIVITAMINS WITH MINERALS, THERAPEUTIC TABLET PO SCH (09:05)
[2016-12-30] MEDS: AmLODIPine BESYLATE 2.5 MG TABLET PO SCH (09:05)
[2016-12-30] MEDS: BENZTROPINE MESYLATE 2 MG TABLET PO SCH ×2 (09:05→17:34)
[2016-12-30] MEDS: CarBAMazepine 200 MG TABLET PO SCH ×2 (09:05→17:34)
[2016-12-30] MEDS: INSULIN DETEMIR 100 UNITS/ML SQ SCH ×2 (09:14→17:35)
[2016-12-30 09:38] LABS: GLUCOMETER DEV NAME(LOC) 3EC; GLUCOSE,POINT OF CARE 270 MG/DL (70-110)
[2016-12-30 11:12] LABS: GLUCOMETER DEV NAME(LOC) 3EC; GLUCOSE,POINT OF CARE 278 MG/DL (70-110)
[2016-12-30] MEDS: LORazepam 2 MG TABLET PO PRN (13:12)
[2016-12-30 13:13] LABS: GLUCOMETER DEV NAME(LOC) 3EC; GLUCOSE,POINT OF CARE 329 MG/DL (70-110)
[2016-12-30] MEDS: FluPHENAZine HCL 5 MG TABLET PO PRN (13:13)
[2016-12-30 14:07] LABS: GLUCOMETER DEV NAME(LOC) 3EC; GLUCOSE,POINT OF CARE 288 MG/DL (70-110)
[2016-12-30] MEDS ORDERED: DIVA500T52 PO (16:52)
[2016-12-30] MEDS ORDERED: FLUP10 PO (16:52)
[2016-12-30] MEDS ORDERED: CARB200T6 PO (16:52)
[2016-12-30] MEDS ORDERED: BENZ2TAB10 PO (16:52)
[2016-12-30 17:38] LABS: GLUCOMETER DEV NAME(LOC) 3EC; GLUCOSE,POINT OF CARE 274 MG/DL (70-110)
[2016-12-30 18:02] VITALS: BP 149/99
[2016-12-30] MEDS: DIVALPROEX SODIUM 500 MG ER TABLET PO SCH (21:10)
[2016-12-30] MEDS: FluPHENAZine HCL 10 MG TABLET PO SCH (21:10)
[2016-12-31 00:11] LABS: GLUCOMETER DEV NAME(LOC) 3EC; GLUCOSE,POINT OF CARE 253 MG/DL (70-110)
[2016-12-31 06:38] LABS: GLUCOMETER DEV NAME(LOC) 3EC; GLUCOSE,POINT OF CARE 346 MG/DL (70-110)
[2016-12-31] MEDS: INSULIN ASPART 100 UNITS/ML SQ SCH ×2 (06:46→11:36)
[2016-12-31] MEDS: LEVOTHYROXINE SODIUM 25 MCG TABLET PO SCH (06:48)
[2016-12-31] MEDS: BENZTROPINE MESYLATE 2 MG TABLET PO SCH (08:27)
[2016-12-31] MEDS: CarBAMazepine 200 MG TABLET PO SCH (08:28)
[2016-12-31] MEDS: AmLODIPine BESYLATE 2.5 MG TABLET PO SCH (08:28)
[2016-12-31] MEDS: MULTIVITAMINS WITH MINERALS, THERAPEUTIC TABLET PO SCH (08:28)
[2016-12-31] MEDS: INSULIN DETEMIR 100 UNITS/ML SQ SCH (08:29)
[2016-12-31 08:41] VITALS: BP 146/82
[2016-12-31 10:07] LABS: GLUCOMETER DEV NAME(LOC) 3EC; GLUCOSE,POINT OF CARE 225 MG/DL (70-110)
[2016-12-31] MEDS ORDERED: AMLO2.5T PO (10:41)
[2016-12-31] MEDS ORDERED: INSNOV SQ (10:42)
[2016-12-31] MEDS ORDERED: INSU100V12 SQ (10:43)
[2016-12-31 11:37] LABS: GLUCOMETER DEV NAME(LOC) 3EC; GLUCOSE,POINT OF CARE 292 MG/DL (70-110)
== END 2016-12-31 13:30 | disposition home or self-care (01) | DRG 885 ==
LOC: EMS 12:33 → 3EX 17:19 → 3EC 12-19 14:51
PROVIDERS: ADMIT Psychiatry & Neurology Psychiatry; ATTEND Psychiatry & Neurology Psychiatry
DX: F25.0 Schizoaffective disorder, bipolar type (principal); E10.65 Type 1 diabetes mellitus with hyperglycemia; E66.9 Obesity, unspecified; I10 Essential (primary) hypertension; Z59.9 Problem related to housing and economic circumstances, unspecified; Z65.3 Problems related to other legal circumstances; Z79.4 Long term (current) use of insulin; Z91.19 Patient's noncompliance with other medical treatment and regimen; Z91.048 Other nonmedicinal substance allergy status; E02 Subclinical iodine-deficiency hypothyroidism; Z68.34 Body mass index [BMI] 34.0-34.9, adult
CPT/HCPCS: 80173; 82962; 83036; 84439; 84443; 86592; 87081; 93005; 96372; 99285; G0480; G0481; J0515; J1200; J1630; J1815; J2060

== ENCOUNTER 2017-01-16 22:02 | Inpatient (IN) | payer BC, MEDICAID ==
[~2017-01-16] VITALS: Ht 170.2 cm; Wt 92.0 kg
[~2017-01-16 22:02] MED LIST changes: +AMLO2.5T PO; +BENZ2TAB10 PO; +CARB200T6 PO; +DIVA500T52 PO; +FLUP10 PO; -INSLAN SQ; +INSNOV SQ; -INSU100C14 SQ; +INSU100V12 SQ
[2017-01-16 22:48] LABS: BASOPHILS # (AUTO) 0.05 K/uL (0.00-0.20); BASOPHILS % (AUTO) 0.3 % (0.0-2.0); EOSINOPHILS # (AUTO) 0.09 K/uL (0.00-0.70); EOSINOPHILS % (AUTO) 0.58 % (1.0-6.0); HEMATOCRIT 43.7 % (41-53); HEMOGLOBIN 14.6 g/dL (13.5-17.5); LYMPHOCYTES # (AUTO) 3.2 K/uL (1.0-4.8); LYMPHOCYTES % (AUTO) 19.7 % (22.0-44.0); MEAN CORPUSCULAR HEMOGLOBIN 30.1 pg (26.0-34.0); MEAN CORPUSCULAR HGB CONC 33.4 G/dL (31.0-37.0); MEAN CORPUSCULAR VOLUME 90 fL (80-100); MONOCYTES # (AUTO) 0.6 K/uL (0.1-1.0); MONOCYTES % (AUTO) 3.9 % (2.0-9.0); NEUTROPHILS # (AUTO) 12.2 K/uL (1.8-7.7); NEUTROPHILS % (AUTO) 75.5 % (40.0-70.0); PLATELET COUNT (AUTO) 269 K/uL (150-450); RED BLOOD CELL COUNT(AUTO) 4.84 MIL/uL (4.50-5.90); RED CELL DISTRIBUTION WIDTH 13.8 % (11.5-14.5); WHITE BLOOD COUNT (AUTO) 16.1 K/uL (4.5-11.0)
[2017-01-16 22:58] LABS: ANION GAP 12 mmol/L (8-16); CALCIUM, TOTAL 9.1 mg/dL (8.8-10.5); CARBON DIOXIDE 26 mmol/L (22-29); CHLORIDE 104 mmol/L (98-107); CREATININE 1.24 mg/dL (0.60-1.30); GLOMERULAR FILTR. RATE CALC > 60 mL/min (>60); POTASSIUM 3.9 mmol/L (3.5-5.1); SODIUM SERUM 142 mmol/L (136-145); UREA NITROGEN, BLOOD 25 mg/dL (7-18)
[2017-01-16 23:05] LABS: ALANINE AMINOTRANSFERASE 49 U/L (12-78); ALBUMIN 3.6 g/dL (3.4-5.0); ASPARTATE AMINOTRANSFERASE 47 U/L (15-37); TOTAL PROTEIN, SERUM 7.7 g/dL (6.4-8.2)
[2017-01-16] MEDS ORDERED: DiphenhydrAMINE HCL 50 MG/ML VIAL IM ONE (23:15)
[2017-01-16] MEDS ORDERED: LORazepam 2 MG/ML VIAL IM ONE (23:15)
[2017-01-16] MEDS ORDERED: HALOPERIDOL LACTATE 5 MG/ML VIAL IM ONE (23:15)
[2017-01-16 23:16] LABS: BILIRUBIN,TOTAL 0.1 mg/dL (0.1-1.0)
[2017-01-16 23:36] LABS: VALPROIC ACID 48 mcg/mL (50-100)
[2017-01-17] MEDS ORDERED: HALOPERIDOL 5 MG TABLET PO PRN
[2017-01-17 03:12] VITALS: BP 132/74
[2017-01-17] MEDS ORDERED: DEXTROSE 50%-WATER 25 GM/50 ML SYRINGE IVP PRN (07:30)
[2017-01-17 09:13] LABS: GLUCOSE,POINT OF CARE 358 MG/DL (70-110)
[2017-01-17 09:18] VITALS: BP 119/64
[2017-01-17] MEDS: INSULIN DETEMIR 100 UNITS/ML SQ SCH ×2 (09:37→16:57)
[2017-01-17 11:23] LABS: GLUCOSE,POINT OF CARE 283 MG/DL (70-110)
[2017-01-17] MEDS: INSULIN ASPART 100 UNITS/ML SQ SCH ×2 (12:27→17:02)
[2017-01-17 15:03] LABS: GLUCOSE,POINT OF CARE 237 MG/DL (70-110)
[2017-01-17 16:46] VITALS: BP 150/94
[2017-01-17 16:54] LABS: GLUCOSE,POINT OF CARE 210 MG/DL (70-110)
[2017-01-17] MEDS: INSULIN ASPART 100 UNITS/ML SQ PRN ×2 (17:03→21:12)
[2017-01-17] MEDS: HALOPERIDOL 10 MG TABLET PO SCH (20:35)
[2017-01-17] MEDS: DIVALPROEX SODIUM 500 MG ER TABLET PO SCH (20:36)
[2017-01-17 20:53] LABS: GLUCOSE,POINT OF CARE 321 MG/DL (70-110)
[2017-01-17] MEDS ORDERED: HALOPERIDOL LACTATE 5 MG/ML VIAL ONE (22:08)
[2017-01-17] MEDS ORDERED: LORazepam 2 MG/ML VIAL ONE (22:08)
[2017-01-17] MEDS ORDERED: DiphenhydrAMINE HCL 50 MG/ML VIAL ONE (22:09)
[2017-01-17] MEDS ORDERED: HALOPERIDOL LACTATE 5 MG/ML VIAL IM ONE (22:15)
[2017-01-17] MEDS ORDERED: LORazepam 2 MG/ML VIAL IM ONE (22:15)
[2017-01-17] MEDS ORDERED: DiphenhydrAMINE HCL 50 MG/ML VIAL IM ONE (22:15)
[2017-01-18 03:50] VITALS: BP 174/86
[2017-01-18 04:38] LABS: GLUCOSE,POINT OF CARE 136 MG/DL (70-110)
[2017-01-18 05:43] LABS: GLUCOSE COMMENT 1 Received Meds; GLUCOSE,POINT OF CARE 182 MG/DL (70-110)
[2017-01-18] MEDS: LORazepam 2 MG TABLET PO PRN (06:14)
[2017-01-18] MEDS: INSULIN ASPART 100 UNITS/ML SQ PRN ×4 (06:49→21:26)
[2017-01-18] MEDS: LEVOTHYROXINE SODIUM 25 MCG TABLET PO SCH (07:02)
[2017-01-18] MEDS: INSULIN ASPART 100 UNITS/ML SQ SCH ×3 (07:24→17:00)
[2017-01-18 09:05] VITALS: BP 157/97
[2017-01-18] MEDS: AmLODIPine BESYLATE 2.5 MG TABLET PO SCH (09:27)
[2017-01-18] MEDS: BENZTROPINE MESYLATE 1 MG TABLET PO SCH ×2 (09:27→18:38)
[2017-01-18] MEDS: INSULIN DETEMIR 100 UNITS/ML SQ SCH ×2 (09:41→18:56)
[2017-01-18 11:23] LABS: GLUCOSE,POINT OF CARE 155 MG/DL (70-110)
[2017-01-18] MEDS ORDERED: HALOPERIDOL LACTATE 5 MG/ML VIAL ONE (15:07)
[2017-01-18] MEDS ORDERED: LORazepam 2 MG/ML VIAL ONE (15:07)
[2017-01-18] MEDS ORDERED: DiphenhydrAMINE HCL 50 MG/ML VIAL ONE (15:07)
[2017-01-18] MEDS ORDERED: DiphenhydrAMINE HCL 50 MG/ML VIAL IM ONE (15:15)
[2017-01-18] MEDS ORDERED: LORazepam 2 MG/ML VIAL IM ONE (15:15)
[2017-01-18] MEDS ORDERED: HALOPERIDOL LACTATE 5 MG/ML VIAL IM ONE (15:15)
[2017-01-18 18:47] LABS: GLUCOSE,POINT OF CARE 120 MG/DL (70-110)
[2017-01-18 21:12] VITALS: BP 139/93
[2017-01-18] MEDS: DIVALPROEX SODIUM 500 MG ER TABLET PO SCH (21:12)
[2017-01-18] MEDS: HALOPERIDOL 10 MG TABLET PO SCH (21:12)
[2017-01-18 21:18] LABS: GLUCOSE,POINT OF CARE 216 MG/DL (70-110)
[2017-01-19] MEDS: LEVOTHYROXINE SODIUM 25 MCG TABLET PO SCH (07:01)
[2017-01-19] MEDS: INSULIN ASPART 100 UNITS/ML SQ SCH ×3 (07:21→17:45)
[2017-01-19 07:23] LABS: GLUCOSE COMMENT 1 Received Meds; GLUCOSE,POINT OF CARE 173 MG/DL (70-110)
[2017-01-19] MEDS: LORazepam 2 MG TABLET PO PRN ×2 (08:12→17:46)
[2017-01-19] MEDS: BENZTROPINE MESYLATE 1 MG TABLET PO SCH ×2 (08:13→16:30)
[2017-01-19] MEDS: AmLODIPine BESYLATE 2.5 MG TABLET PO SCH (08:13)
[2017-01-19] MEDS: INSULIN DETEMIR 100 UNITS/ML SQ SCH ×3 (08:15→17:00)
[2017-01-19] MEDS ORDERED: HALOPERIDOL LACTATE 5 MG/ML VIAL ONE (08:57)
[2017-01-19] MEDS ORDERED: DiphenhydrAMINE HCL 50 MG/ML VIAL ONE (08:57)
[2017-01-19] MEDS ORDERED: HALOPERIDOL LACTATE 5 MG/ML VIAL IM ONE ×3 (09:00→19:15)
[2017-01-19] MEDS ORDERED: DiphenhydrAMINE HCL 50 MG/ML VIAL IM ONE ×3 (09:00→19:15)
[2017-01-19 12:22] LABS: GLUCOSE,POINT OF CARE 209 MG/DL (70-110)
[2017-01-19] MEDS ORDERED: LORazepam 2 MG/ML VIAL ONE (14:21)
[2017-01-19] MEDS ORDERED: LORazepam 2 MG/ML VIAL IM ONE ×2 (14:30→19:15)
[2017-01-19 16:13] VITALS: BP 136/94
[2017-01-19] MEDS: CarBAMazepine 200 MG TABLET PO SCH (16:30)
[2017-01-19 17:22] LABS: GLUCOSE,POINT OF CARE 227 MG/DL (70-110)
[2017-01-19] MEDS: INSULIN ASPART 100 UNITS/ML SQ PRN ×2 (17:46→20:29)
[2017-01-19] MEDS: HALOPERIDOL 10 MG TABLET PO PRN (17:47)
[2017-01-19 20:27] LABS: GLUCOSE,POINT OF CARE 218 MG/DL (70-110)
[2017-01-19] MEDS: DIVALPROEX SODIUM 500 MG ER TABLET PO SCH (20:27)
[2017-01-19] MEDS ORDERED: FluPHENAZine HCL 10 MG TABLET PO SCH (21:00)
[2017-01-20 06:23] LABS: GLUCOSE COMMENT 1 Received Meds; GLUCOSE,POINT OF CARE 160 MG/DL (70-110)
[2017-01-20] MEDS: LEVOTHYROXINE SODIUM 25 MCG TABLET PO SCH (06:42)
[2017-01-20] MEDS: INSULIN ASPART 100 UNITS/ML SQ SCH ×3 (06:44→17:00)
[2017-01-20] MEDS: INSULIN ASPART 100 UNITS/ML SQ PRN ×4 (07:16→21:27)
[2017-01-20] MEDS: CarBAMazepine 200 MG TABLET PO SCH ×2 (08:22→16:53)
[2017-01-20] MEDS: AmLODIPine BESYLATE 2.5 MG TABLET PO SCH (08:22)
[2017-01-20] MEDS: HALOPERIDOL 10 MG TABLET PO PRN ×2 (08:22→16:53)
[2017-01-20 08:23] VITALS: BP 151/94
[2017-01-20] MEDS: BENZTROPINE MESYLATE 1 MG TABLET PO SCH ×2 (08:23→16:53)
[2017-01-20] MEDS: INSULIN DETEMIR 100 UNITS/ML SQ SCH ×2 (08:43→17:54)
[2017-01-20 09:50] LABS: HEMATOCRIT 44.9 % (41-53); HEMOGLOBIN 15.7 g/dL (13.5-17.5); LYMPHOCYTES # (AUTO) 2.4 K/uL (1.0-4.8); MEAN CORPUSCULAR HEMOGLOBIN 30.9 pg (26.0-34.0); MEAN CORPUSCULAR VOLUME 88 fL (80-100); MONOCYTES # (AUTO) 0.7 K/uL (0.1-1.0); NEUTROPHILS # (AUTO) 8.6 K/uL (1.8-7.7); PLATELET COUNT (AUTO) 339 K/uL (150-450); RED BLOOD CELL COUNT(AUTO) 5.07 MIL/uL (4.50-5.90); RED CELL DISTRIBUTION WIDTH 13.4 % (11.5-14.5)
[2017-01-20] MEDS: LORazepam 2 MG TABLET PO PRN ×2 (10:50→16:53)
[2017-01-20 11:12] LABS: GLUCOSE COMMENT 1 Received Meds; GLUCOSE,POINT OF CARE 206 MG/DL (70-110)
[2017-01-20] MEDS ORDERED: FluPHENAZine DECANOATE 25 MG/ML IM ONE (17:00)
[2017-01-20 17:03] LABS: GLUCOSE COMMENT 1 FASTING; GLUCOSE,POINT OF CARE 126 MG/DL (70-110)
[2017-01-20] MEDS: DIVALPROEX SODIUM 500 MG ER TABLET PO SCH (20:56)
[2017-01-20] MEDS: FluPHENAZine HCL 10 MG TABLET PO SCH (20:56)
[2017-01-20 21:11] LABS: GLUCOSE COMMENT 1 Doctor Notified; GLUCOSE,POINT OF CARE 528 MG/DL (70-110)
[2017-01-20 21:15] VITALS: BP 149/91
[2017-01-20 22:27] LABS: GLUCOSE COMMENT 1 FASTING; GLUCOSE COMMENT 2 Doctor Notified; GLUCOSE,POINT OF CARE 454 MG/DL (70-110)
[2017-01-20 23:12] LABS: GLUCOSE COMMENT 1 Repeated; GLUCOSE,POINT OF CARE 408 MG/DL (70-110)
[2017-01-21 06:22] LABS: GLUCOSE COMMENT 1 Received Meds; GLUCOSE,POINT OF CARE 183 MG/DL (70-110)
[2017-01-21] MEDS: LEVOTHYROXINE SODIUM 25 MCG TABLET PO SCH (07:06)
[2017-01-21] MEDS: INSULIN ASPART 100 UNITS/ML SQ SCH ×3 (07:08→17:30)
[2017-01-21] MEDS: INSULIN ASPART 100 UNITS/ML SQ PRN ×3 (07:09→21:30)
[2017-01-21 08:00] VITALS: BP 143/93
[2017-01-21] MEDS: BENZTROPINE MESYLATE 1 MG TABLET PO SCH ×3 (08:35→17:20)
[2017-01-21] MEDS: AmLODIPine BESYLATE 2.5 MG TABLET PO SCH (08:35)
[2017-01-21] MEDS: CarBAMazepine 200 MG TABLET PO SCH ×2 (08:35→17:20)
[2017-01-21] MEDS: INSULIN DETEMIR 100 UNITS/ML SQ SCH ×2 (08:37→18:13)
[2017-01-21] MEDS: OLANZapine 10 MG RAPDIS TABLET PO SCH (10:19)
[2017-01-21 11:17] LABS: GLUCOSE COMMENT 1 Received Meds; GLUCOSE,POINT OF CARE 155 MG/DL (70-110)
[2017-01-21] MEDS ORDERED: ACETAMINOPHEN 650 MG RECTAL SUPPOSITORY PR PRN (12:45)
[2017-01-21] MEDS ORDERED: ACETAMINOPHEN 325 MG TABLET PO PRN (14:00)
[2017-01-21 17:27] LABS: GLUCOSE COMMENT 1 FASTING; GLUCOSE,POINT OF CARE 196 MG/DL (70-110)
[2017-01-21] MEDS: FluPHENAZine HCL 10 MG TABLET PO SCH (21:19)
[2017-01-21] MEDS: DIVALPROEX SODIUM 500 MG ER TABLET PO SCH (21:19)
[2017-01-21 21:22] LABS: GLUCOSE COMMENT 1 FASTING; GLUCOSE,POINT OF CARE 237 MG/DL (70-110)
[2017-01-22 06:58] LABS: GLUCOSE COMMENT 1 Received Meds; GLUCOSE,POINT OF CARE 129 MG/DL (70-110)
[2017-01-22 07:03] LABS: BASOPHILS # (AUTO) 0.14 K/uL (0.00-0.20); BASOPHILS % (AUTO) 1.4 % (0.0-2.0); EOSINOPHILS # (AUTO) 0.36 K/uL (0.00-0.70); EOSINOPHILS % (AUTO) 3.43 % (1.0-6.0); HEMATOCRIT 43.4 % (41-53); HEMOGLOBIN 14.8 g/dL (13.5-17.5); LYMPHOCYTES # (AUTO) 3.4 K/uL (1.0-4.8); LYMPHOCYTES % (AUTO) 32.4 % (22.0-44.0); MEAN CORPUSCULAR HEMOGLOBIN 30.7 pg (26.0-34.0); MEAN CORPUSCULAR VOLUME 90 fL (80-100); MONOCYTES # (AUTO) 0.8 K/uL (0.1-1.0); MONOCYTES % (AUTO) 7.4 % (2.0-9.0); NEUTROPHILS # (AUTO) 5.9 K/uL (1.8-7.7); NEUTROPHILS % (AUTO) 55.4 % (40.0-70.0); PLATELET COUNT (AUTO) 313 K/uL (150-450); RED BLOOD CELL COUNT(AUTO) 4.81 MIL/uL (4.50-5.90); RED CELL DISTRIBUTION WIDTH 13.5 % (11.5-14.5); WHITE BLOOD COUNT (AUTO) 10.6 K/uL (4.5-11.0)
[2017-01-22] MEDS: LEVOTHYROXINE SODIUM 25 MCG TABLET PO SCH (07:07)
[2017-01-22] MEDS: INSULIN ASPART 100 UNITS/ML SQ SCH ×3 (07:17→17:42)
[2017-01-22] MEDS: INSULIN ASPART 100 UNITS/ML SQ PRN ×3 (07:18→17:42)
[2017-01-22 08:47] LABS: GLUCOSE COMMENT 1 Received Meds; GLUCOSE,POINT OF CARE 160 MG/DL (70-110)
[2017-01-22 09:00] VITALS: BP 139/89
[2017-01-22] MEDS: BENZTROPINE MESYLATE 1 MG TABLET PO SCH ×3 (09:00→17:07)
[2017-01-22] MEDS: AmLODIPine BESYLATE 5 MG TABLET PO SCH (09:01)
[2017-01-22] MEDS: OLANZapine 10 MG RAPDIS TABLET PO SCH (09:01)
[2017-01-22] MEDS: HALOPERIDOL 10 MG TABLET PO PRN ×2 (09:02→17:07)
[2017-01-22] MEDS: CarBAMazepine 200 MG TABLET PO SCH ×2 (09:02→17:07)
[2017-01-22] MEDS: LORazepam 2 MG TABLET PO PRN (09:02)
[2017-01-22] MEDS: INSULIN DETEMIR 100 UNITS/ML SQ SCH ×2 (09:04→17:41)
[2017-01-22 11:12] LABS: GLUCOSE COMMENT 1 Received Meds; GLUCOSE,POINT OF CARE 227 MG/DL (70-110)
[2017-01-22] MEDS: FluPHENAZine HCL 5 MG TABLET PO PRN (11:40)
[2017-01-22 16:26] LABS: GLUCOSE,POINT OF CARE 158 MG/DL (70-110)
[2017-01-22 17:32] VITALS: BP 131/69
[2017-01-22] MEDS ORDERED: LORazepam 2 MG/ML VIAL ONE (19:21)
[2017-01-22] MEDS ORDERED: DiphenhydrAMINE HCL 50 MG/ML VIAL ONE (19:22)
[2017-01-22] MEDS ORDERED: HALOPERIDOL LACTATE 5 MG/ML VIAL ONE (19:22)
[2017-01-22] MEDS ORDERED: LORazepam 2 MG/ML VIAL IM ONE (19:30)
[2017-01-22] MEDS ORDERED: DiphenhydrAMINE HCL 50 MG/ML VIAL IM ONE (19:30)
[2017-01-22] MEDS ORDERED: HALOPERIDOL LACTATE 5 MG/ML VIAL IM ONE (19:30)
[2017-01-22] MEDS: FluPHENAZine HCL 10 MG TABLET PO SCH (21:58)
[2017-01-22] MEDS: DIVALPROEX SODIUM 500 MG ER TABLET PO SCH (21:58)
[2017-01-22 22:02] LABS: GLUCOSE,POINT OF CARE 86 MG/DL (70-110)
[2017-01-23 06:47] LABS: GLUCOSE COMMENT 1 Received Meds; GLUCOSE,POINT OF CARE 127 MG/DL (70-110)
[2017-01-23] MEDS: LEVOTHYROXINE SODIUM 25 MCG TABLET PO SCH (07:04)
[2017-01-23] MEDS: INSULIN ASPART 100 UNITS/ML SQ SCH ×3 (07:05→17:26)
[2017-01-23] MEDS: INSULIN ASPART 100 UNITS/ML SQ PRN ×4 (07:06→20:58)
[2017-01-23 08:19] VITALS: BP 137/88
[2017-01-23] MEDS: BENZTROPINE MESYLATE 1 MG TABLET PO SCH ×3 (08:32→16:19)
[2017-01-23] MEDS: CarBAMazepine 200 MG TABLET PO SCH ×2 (08:33→16:19)
[2017-01-23] MEDS: AmLODIPine BESYLATE 5 MG TABLET PO SCH (08:33)
[2017-01-23] MEDS: HALOPERIDOL 10 MG TABLET PO PRN (08:33)
[2017-01-23] MEDS: OLANZapine 10 MG RAPDIS TABLET PO SCH (08:33)
[2017-01-23] MEDS: INSULIN DETEMIR 100 UNITS/ML SQ SCH ×2 (09:07→17:28)
[2017-01-23] MEDS: LORazepam 2 MG TABLET PO PRN (10:00)
[2017-01-23] MEDS: FluPHENAZine HCL 5 MG TABLET PO PRN (10:00)
[2017-01-23 11:16] LABS: GLUCOSE,POINT OF CARE 75 MG/DL (70-110)
[2017-01-23 12:02] LABS: GLUCOSE COMMENT 1 Received Meds; GLUCOSE,POINT OF CARE 135 MG/DL (70-110)
[2017-01-23 15:56] LABS: GLUCOSE COMMENT 1 Received Meds; GLUCOSE,POINT OF CARE 248 MG/DL (70-110)
[2017-01-23 16:26] LABS: GLUCOSE COMMENT 1 Received Meds; GLUCOSE,POINT OF CARE 247 MG/DL (70-110)
[2017-01-23] MEDS: FluPHENAZine HCL 10 MG TABLET PO SCH (20:11)
[2017-01-23] MEDS: DIVALPROEX SODIUM 500 MG ER TABLET PO SCH (20:11)
[2017-01-23 20:12] LABS: GLUCOSE COMMENT 1 Received Meds; GLUCOSE,POINT OF CARE 299 MG/DL (70-110)
[2017-01-24 06:37] LABS: GLUCOSE,POINT OF CARE 275 MG/DL (70-110)
[2017-01-24] MEDS: LEVOTHYROXINE SODIUM 25 MCG TABLET PO SCH (07:09)
[2017-01-24] MEDS: INSULIN ASPART 100 UNITS/ML SQ SCH ×3 (07:11→18:00)
[2017-01-24] MEDS: INSULIN ASPART 100 UNITS/ML SQ PRN (07:13)
[2017-01-24 08:29] VITALS: BP 113/69
[2017-01-24 08:32] VITALS: BP 96/69
[2017-01-24] MEDS: HALOPERIDOL 10 MG TABLET PO PRN ×2 (08:51→21:15)
[2017-01-24] MEDS: AmLODIPine BESYLATE 5 MG TABLET PO SCH (08:51)
[2017-01-24] MEDS: FluPHENAZine HCL 5 MG TABLET PO PRN ×2 (08:51→09:05)
[2017-01-24] MEDS: BENZTROPINE MESYLATE 1 MG TABLET PO SCH ×3 (08:51→17:40)
[2017-01-24] MEDS: CarBAMazepine 200 MG TABLET PO SCH ×2 (08:51→17:40)
[2017-01-24] MEDS: OLANZapine 10 MG RAPDIS TABLET PO SCH (08:51)
[2017-01-24] MEDS: LORazepam 2 MG TABLET PO PRN ×2 (08:51→21:15)
[2017-01-24] MEDS: INSULIN DETEMIR 100 UNITS/ML SQ SCH ×2 (09:10→17:42)
[2017-01-24 11:37] LABS: GLUCOSE,POINT OF CARE 62 MG/DL (70-110)
[2017-01-24 12:42] LABS: GLUCOSE,POINT OF CARE 225 MG/DL (70-110)
[2017-01-24 17:42] LABS: GLUCOSE,POINT OF CARE 349 MG/DL (70-110)
[2017-01-24 19:12] LABS: GLUCOSE,POINT OF CARE 429 MG/DL (70-110)
[2017-01-24 20:32] LABS: GLUCOSE,POINT OF CARE 291 MG/DL (70-110)
[2017-01-24] MEDS: DIVALPROEX SODIUM 500 MG ER TABLET PO SCH (20:48)
[2017-01-24] MEDS: FluPHENAZine HCL 10 MG TABLET PO SCH (20:51)
[2017-01-25 06:28] LABS: GLUCOSE COMMENT 1 Received Meds; GLUCOSE,POINT OF CARE 170 MG/DL (70-110)
[2017-01-25] MEDS: LEVOTHYROXINE SODIUM 25 MCG TABLET PO SCH (06:45)
[2017-01-25] MEDS: INSULIN ASPART 100 UNITS/ML SQ SCH ×3 (06:46→18:03)
[2017-01-25 08:10] VITALS: BP 151/76
[2017-01-25] MEDS: OLANZapine 10 MG RAPDIS TABLET PO SCH (09:35)
[2017-01-25] MEDS: CarBAMazepine 200 MG TABLET PO SCH ×2 (09:35→16:20)
[2017-01-25] MEDS: HALOPERIDOL 10 MG TABLET PO PRN (09:35)
[2017-01-25] MEDS: FluPHENAZine HCL 5 MG TABLET PO PRN ×2 (09:36→16:21)
[2017-01-25] MEDS: DIVALPROEX SODIUM 500 MG ER TABLET PO SCH ×2 (09:36→20:06)
[2017-01-25] MEDS: BENZTROPINE MESYLATE 1 MG TABLET PO SCH ×3 (09:36→16:20)
[2017-01-25] MEDS: LORazepam 2 MG TABLET PO PRN ×2 (09:36→16:20)
[2017-01-25] MEDS: AmLODIPine BESYLATE 5 MG TABLET PO SCH (09:36)
[2017-01-25] MEDS: INSULIN DETEMIR 100 UNITS/ML SQ SCH ×2 (10:03→18:03)
[2017-01-25 11:07] LABS: GLUCOSE,POINT OF CARE 168 MG/DL (70-110)
[2017-01-25 16:22] LABS: GLUCOSE,POINT OF CARE 138 MG/DL (70-110)
[2017-01-25 18:44] VITALS: BP 134/79
[2017-01-25] MEDS: FluPHENAZine HCL 10 MG TABLET PO SCH (20:06)
[2017-01-25 20:07] LABS: GLUCOSE,POINT OF CARE 119 MG/DL (70-110)
[2017-01-25] MEDS: ZOLPIDEM TARTRATE 10 MG TABLET PO PRN (21:27)
[2017-01-26 00:19] VITALS: BP 126/73
[2017-01-26] MEDS: LORazepam 2 MG TABLET PO PRN (00:19)
[2017-01-26 06:32] LABS: BASOPHILS % (AUTO) 1.2 % (0.0-2.0); HEMATOCRIT 44.8 % (41-53); HEMOGLOBIN 15.6 g/dL (13.5-17.5); LYMPHOCYTES # (AUTO) 3.7 K/uL (1.0-4.8); LYMPHOCYTES % (AUTO) 37.5 % (22.0-44.0); MEAN CORPUSCULAR HEMOGLOBIN 31.1 pg (26.0-34.0); MEAN CORPUSCULAR HGB CONC 34.8 G/dL (31.0-37.0); MEAN CORPUSCULAR VOLUME 89 fL (80-100); MONOCYTES # (AUTO) 0.7 K/uL (0.1-1.0); MONOCYTES % (AUTO) 7.4 % (2.0-9.0); NEUTROPHILS % (AUTO) 49.9 % (40.0-70.0); PLATELET COUNT (AUTO) 307 K/uL (150-450); RED BLOOD CELL COUNT(AUTO) 5.01 MIL/uL (4.50-5.90); RED CELL DISTRIBUTION WIDTH 13.3 % (11.5-14.5)
[2017-01-26 06:33] LABS: GLUCOSE,POINT OF CARE 100 MG/DL (70-110)
[2017-01-26 07:00] LABS: ALBUMIN 3.3 g/dL (3.4-5.0); BILIRUBIN,TOTAL 0.2 mg/dL (0.1-1.0); TOTAL PROTEIN, SERUM 7.3 g/dL (6.4-8.2)
[2017-01-26] MEDS: LEVOTHYROXINE SODIUM 25 MCG TABLET PO SCH (07:03)
[2017-01-26 07:04] LABS: BILIRUBIN,DIRECT 0.1 mg/dL (0.00-0.20)
[2017-01-26] MEDS: INSULIN ASPART 100 UNITS/ML SQ SCH ×3 (07:04→17:32)
[2017-01-26 08:09] VITALS: BP 119/66
[2017-01-26 08:15] VITALS: BP 133/77
[2017-01-26 08:32] LABS: GLUCOSE COMMENT 1 Received Meds; GLUCOSE,POINT OF CARE 127 MG/DL (70-110)
[2017-01-26] MEDS: INSULIN DETEMIR 100 UNITS/ML SQ SCH ×2 (08:39→17:32)
[2017-01-26] MEDS: BENZTROPINE MESYLATE 1 MG TABLET PO SCH ×2 (08:54→12:05)
[2017-01-26] MEDS: OLANZapine 10 MG RAPDIS TABLET PO SCH (08:55)
[2017-01-26] MEDS: CarBAMazepine 200 MG TABLET PO SCH ×2 (08:55→16:01)
[2017-01-26] MEDS: DIVALPROEX SODIUM 500 MG ER TABLET PO SCH ×2 (08:55→20:47)
[2017-01-26] MEDS: AmLODIPine BESYLATE 5 MG TABLET PO SCH (09:00)
[2017-01-26 11:38] LABS: GLUCOSE COMMENT 1 Received Meds; GLUCOSE,POINT OF CARE 90 MG/DL (70-110)
[2017-01-26] MEDS: FluPHENAZine HCL 5 MG TABLET PO PRN (15:58)
[2017-01-26] MEDS: TRIHEXYPHENIDYL HCL 5 MG TABLET PO SCH (16:01)
[2017-01-26 16:02] LABS: GLUCOSE,POINT OF CARE 423 MG/DL (70-110)
[2017-01-26 16:34] VITALS: BP 136/81
[2017-01-26] MEDS ORDERED: INSULIN ASPART 100 UNITS/ML SQ SCH (17:00)
[2017-01-26 17:37] LABS: GLUCOSE,POINT OF CARE 530 MG/DL (70-110)
[2017-01-26 20:16] LABS: GLUCOSE COMMENT 1 Doctor Notified; GLUCOSE,POINT OF CARE 499 MG/DL (70-110)
[2017-01-26] MEDS ORDERED: INSULIN ASPART 100 UNITS/ML SQ ONE (20:30)
[2017-01-26] MEDS: FluPHENAZine HCL 10 MG TABLET PO SCH (20:46)
[2017-01-26 21:52] LABS: GLUCOSE,POINT OF CARE 372 MG/DL (70-110)
[2017-01-26 22:37] LABS: GLUCOSE,POINT OF CARE 264 MG/DL (70-110)
[2017-01-27 06:42] LABS: GLUCOSE,POINT OF CARE 78 MG/DL (70-110)
[2017-01-27] MEDS ORDERED: INSULIN ASPART 100 UNITS/ML SQ SCH ×2 (07:00→11:30)
[2017-01-27] MEDS: LEVOTHYROXINE SODIUM 25 MCG TABLET PO SCH (07:14)
[2017-01-27] MEDS: AmLODIPine BESYLATE 5 MG TABLET PO SCH (08:38)
[2017-01-27] MEDS: DIVALPROEX SODIUM 500 MG ER TABLET PO SCH ×2 (08:38→20:38)
[2017-01-27] MEDS: CarBAMazepine 200 MG TABLET PO SCH ×2 (08:38→17:08)
[2017-01-27] MEDS: TRIHEXYPHENIDYL HCL 5 MG TABLET PO SCH ×2 (08:39→17:07)
[2017-01-27] MEDS: OLANZapine 10 MG RAPDIS TABLET PO SCH (08:42)
[2017-01-27 08:57] LABS: GLUCOSE,POINT OF CARE 77 MG/DL (70-110)
[2017-01-27] MEDS: INSULIN DETEMIR 100 UNITS/ML SQ SCH ×2 (09:00→17:08)
[2017-01-27] MEDS ORDERED: INSULIN DETEMIR 100 UNITS/ML SQ ONE (10:30)
[2017-01-27 10:42] LABS: GLUCOSE,POINT OF CARE 58 MG/DL (70-110)
[2017-01-27 10:46] VITALS: BP 153/96
[2017-01-27] MEDS: LORazepam 2 MG TABLET PO PRN (11:22)
[2017-01-27 11:47] LABS: GLUCOSE COMMENT 1 Received Meds; GLUCOSE,POINT OF CARE 165 MG/DL (70-110)
[2017-01-27 14:22] LABS: GLUCOSE,POINT OF CARE 283 MG/DL (70-110)
[2017-01-27 16:31] LABS: GLUCOSE COMMENT 1 Doctor Notified; GLUCOSE,POINT OF CARE 434 MG/DL (70-110)
[2017-01-27] MEDS: INSULIN ASPART 100 UNITS/ML SQ SCH (17:10)
[2017-01-27 17:22] LABS: GLUCOSE COMMENT 1 Doctor Notified; GLUCOSE COMMENT 2 Repeated; GLUCOSE,POINT OF CARE 457 MG/DL (70-110)
[2017-01-27 17:47] LABS: GLUCOSE COMMENT 1 Doctor Notified; GLUCOSE COMMENT 2 Repeated; GLUCOSE,POINT OF CARE 414 MG/DL (70-110)
[2017-01-27 20:38] LABS: GLUCOSE COMMENT 1 Repeated; GLUCOSE,POINT OF CARE 390 MG/DL (70-110)
[2017-01-27] MEDS: FluPHENAZine HCL 10 MG TABLET PO SCH (20:38)
[2017-01-27] MEDS: ZOLPIDEM TARTRATE 10 MG TABLET PO PRN (20:54)
[2017-01-28 06:02] LABS: GLUCOSE,POINT OF CARE 276 MG/DL (70-110)
[2017-01-28] MEDS: LEVOTHYROXINE SODIUM 25 MCG TABLET PO SCH (07:08)
[2017-01-28] MEDS: INSULIN ASPART 100 UNITS/ML SQ SCH ×3 (07:10→17:22)
[2017-01-28 08:34] VITALS: BP 142/92
[2017-01-28] MEDS: DIVALPROEX SODIUM 500 MG ER TABLET PO SCH ×2 (09:05→20:17)
[2017-01-28] MEDS: TRIHEXYPHENIDYL HCL 5 MG TABLET PO SCH ×2 (09:06→16:50)
[2017-01-28] MEDS: CarBAMazepine 200 MG TABLET PO SCH ×2 (09:06→16:51)
[2017-01-28] MEDS: AmLODIPine BESYLATE 5 MG TABLET PO SCH (09:06)
[2017-01-28 09:27] LABS: GLUCOSE COMMENT 1 Received Meds; GLUCOSE,POINT OF CARE 418 MG/DL (70-110)
[2017-01-28] MEDS: INSULIN DETEMIR 100 UNITS/ML SQ SCH ×2 (09:29→17:23)
[2017-01-28 11:43] LABS: GLUCOSE COMMENT 1 Received Meds; GLUCOSE,POINT OF CARE 347 MG/DL (70-110)
[2017-01-28 19:29] VITALS: BP 137/94
[2017-01-28] MEDS: FluPHENAZine HCL 10 MG TABLET PO SCH (20:17)
[2017-01-28 20:22] LABS: GLUCOSE,POINT OF CARE 365 MG/DL (70-110)
[2017-01-28 20:22] LABS: GLUCOSE,POINT OF CARE 363 MG/DL (70-110)
[2017-01-28] MEDS: ZOLPIDEM TARTRATE 10 MG TABLET PO PRN (21:24)
[2017-01-29 05:52] LABS: GLUCOSE,POINT OF CARE 184 MG/DL (70-110)
[2017-01-29] MEDS: LEVOTHYROXINE SODIUM 25 MCG TABLET PO SCH (07:10)
[2017-01-29] MEDS: INSULIN ASPART 100 UNITS/ML SQ SCH ×2 (07:12→11:30)
[2017-01-29 08:09] VITALS: BP 135/85
[2017-01-29] MEDS ORDERED: FLUD25I IM (09:39)
[2017-01-29] MEDS ORDERED: TRIH5TAB2 PO (09:41)
[2017-01-29] MEDS ORDERED: DIVA500T52 PO (09:41)
[2017-01-29] MEDS ORDERED: INSNOV SQ ×2 (09:52)
[2017-01-29] MEDS ORDERED: AMLO-511 PO (09:52)
[2017-01-29] MEDS: TRIHEXYPHENIDYL HCL 5 MG TABLET PO SCH (09:52)
[2017-01-29] MEDS: CarBAMazepine 200 MG TABLET PO SCH (09:55)
[2017-01-29] MEDS: DIVALPROEX SODIUM 500 MG ER TABLET PO SCH (09:55)
[2017-01-29] MEDS: AmLODIPine BESYLATE 5 MG TABLET PO SCH (09:55)
[2017-01-29] MEDS: INSULIN DETEMIR 100 UNITS/ML SQ SCH (10:03)
[2017-01-29 11:12] LABS: GLUCOSE,POINT OF CARE 235 MG/DL (70-110)
[2017-02-19] MEDS ORDERED: FluPHENAZine DECANOATE 25 MG/ML IM SCH (09:00)
== END 2017-01-29 12:50 | disposition home or self-care (01) | DRG 885 ==
LOC: EMS 22:04 → 3EX 23:10 → UNDOADMIN 23:10 → 3EC 01-18 15:11
PROVIDERS: ADMIT Psychiatry & Neurology Psychiatry; ATTEND Psychiatry & Neurology Psychiatry
DX: F25.0 Schizoaffective disorder, bipolar type (principal); R45.851 Suicidal ideations; E11.9 Type 2 diabetes mellitus without complications; E03.9 Hypothyroidism, unspecified; E66.9 Obesity, unspecified; D72.829 Elevated white blood cell count, unspecified; G47.00 Insomnia, unspecified; I10 Essential (primary) hypertension; Z91.19 Patient's noncompliance with other medical treatment and regimen; Z88.8 Allergy status to other drugs, medicaments and biological substances
CPT/HCPCS: 82962; 96372; 99285; G0480; G0481; J1200; J1630; J1815; J2060; J2680

== ENCOUNTER 2017-01-29 22:20 | Inpatient (IN) | payer BC, MEDICAID ==
[~2017-01-29] VITALS: Ht 162.6 cm; Wt 88.9 kg
[~2017-01-29 22:20] MED LIST changes: +AMLO-511 PO; +FLUD25I IM; +TRIH5TAB2 PO
[2017-01-29 23:32] LABS: BASOPHILS # (AUTO) 0.06 K/uL (0.00-0.20); BASOPHILS % (AUTO) 0.5 % (0.0-2.0); EOSINOPHILS % (AUTO) 1.65 % (1.0-6.0); HEMATOCRIT 45.2 % (41-53); HEMOGLOBIN 15.3 g/dL (13.5-17.5); LYMPHOCYTES # (AUTO) 2.5 K/uL (1.0-4.8); MEAN CORPUSCULAR HEMOGLOBIN 30.5 pg (26.0-34.0); MEAN CORPUSCULAR HGB CONC 33.8 G/dL (31.0-37.0); MEAN CORPUSCULAR VOLUME 90 fL (80-100); MONOCYTES # (AUTO) 0.9 K/uL (0.1-1.0); MONOCYTES % (AUTO) 7.4 % (2.0-9.0); NEUTROPHILS # (AUTO) 8.7 K/uL (1.8-7.7); NEUTROPHILS % (AUTO) 70.5 % (40.0-70.0); PLATELET COUNT (AUTO) 268 K/uL (150-450); RED BLOOD CELL COUNT(AUTO) 5.02 MIL/uL (4.50-5.90); RED CELL DISTRIBUTION WIDTH 12.7 % (11.5-14.5); WHITE BLOOD COUNT (AUTO) 12.4 K/uL (4.5-11.0)
[2017-01-29 23:39] LABS: ANION GAP 11 mmol/L (8-16); CALCIUM, TOTAL 8.7 mg/dL (8.8-10.5); CARBON DIOXIDE 25 mmol/L (22-29); CHLORIDE 104 mmol/L (98-107); CREATININE 1.19 mg/dL (0.60-1.30); GLOMERULAR FILTR. RATE CALC > 60 mL/min (>60); POTASSIUM 3.7 mmol/L (3.5-5.1); SODIUM SERUM 140 mmol/L (136-145); UREA NITROGEN, BLOOD 17 mg/dL (7-18)
[2017-01-29 23:45] LABS: ALANINE AMINOTRANSFERASE 23 U/L (12-78); ALBUMIN 3.6 g/dL (3.4-5.0); ASPARTATE AMINOTRANSFERASE 20 U/L (15-37); BILIRUBIN,TOTAL 0.1 mg/dL (0.1-1.0); TOTAL PROTEIN, SERUM 7.7 g/dL (6.4-8.2)
[2017-01-30] MEDS ORDERED: DiphenhydrAMINE HCL 50 MG/ML VIAL IM ONE (00:45)
[2017-01-30] MEDS ORDERED: LORazepam 2 MG/ML VIAL IM ONE (00:45)
[2017-01-30] MEDS ORDERED: HALOPERIDOL LACTATE 5 MG/ML VIAL IM ONE (00:45)
[2017-01-30 10:36] LABS: GLUCOSE,POINT OF CARE 227 MG/DL (70-110)
[2017-01-30] MEDS: LORazepam 2 MG TABLET PO PRN ×2 (12:03→16:06)
[2017-01-30 16:00] VITALS: BP 132/79
[2017-01-30] MEDS: FluPHENAZine HCL 5 MG TABLET PO PRN (16:06)
[2017-01-30] MEDS ORDERED: INFLUENZA VIRUS VACCINE QVS 2017-18 (3YR+)/PF 60 MCG/0.5 ML SYRINGE IM ONE (16:30)
[2017-01-30] MEDS ORDERED: PNEUMOCOCCAL VACCINE POLYVALENT 0.5 ML VIAL [PPSV23] IM ONE (16:30)
[2017-01-30] MEDS: INSULIN DETEMIR 100 UNITS/ML SQ SCH (17:06)
[2017-01-30] MEDS: INSULIN ASPART 100 UNITS/ML SQ SCH (17:06)
[2017-01-30 17:17] LABS: GLUCOSE,POINT OF CARE 337 MG/DL (70-110)
[2017-01-30 20:47] LABS: GLUCOSE,POINT OF CARE 264 MG/DL (70-110)
[2017-01-31 06:04] VITALS: BP 131/75
[2017-01-31 06:17] LABS: GLUCOSE COMMENT 1 Received Meds; GLUCOSE,POINT OF CARE 292 MG/DL (70-110)
[2017-01-31] MEDS: LEVOTHYROXINE SODIUM 25 MCG TABLET PO SCH (06:22)
[2017-01-31] MEDS: INSULIN ASPART 100 UNITS/ML SQ SCH ×3 (06:25→16:47)
[2017-01-31 08:03] VITALS: BP 128/78
[2017-01-31] MEDS: AmLODIPine BESYLATE 5 MG TABLET PO SCH (08:47)
[2017-01-31] MEDS: INSULIN DETEMIR 100 UNITS/ML SQ SCH ×2 (09:05→16:47)
[2017-01-31 11:38] LABS: GLUCOSE COMMENT 1 Received Meds; GLUCOSE,POINT OF CARE 308 MG/DL (70-110)
[2017-01-31 16:06] VITALS: BP 125/71
[2017-01-31] MEDS: TRIHEXYPHENIDYL HCL 5 MG TABLET PO SCH (16:36)
[2017-01-31 17:27] LABS: GLUCOSE,POINT OF CARE 333 MG/DL (70-110)
[2017-01-31] MEDS: LORazepam 2 MG TABLET PO PRN (18:53)
[2017-01-31] MEDS: ZOLPIDEM TARTRATE 10 MG TABLET PO PRN (20:52)
[2017-01-31] MEDS: FluPHENAZine HCL 10 MG TABLET PO SCH (20:52)
[2017-01-31 21:02] LABS: GLUCOSE,POINT OF CARE 283 MG/DL (70-110)
[2017-02-01] MEDS: LEVOTHYROXINE SODIUM 25 MCG TABLET PO SCH (06:22)
[2017-02-01 06:38] LABS: GLUCOSE COMMENT 1 Received Meds; GLUCOSE,POINT OF CARE 219 MG/DL (70-110)
[2017-02-01] MEDS: INSULIN ASPART 100 UNITS/ML SQ SCH ×3 (06:44→17:09)
[2017-02-01 07:17] VITALS: BP 139/89
[2017-02-01] MEDS: DIVALPROEX SODIUM 500 MG ER TABLET PO SCH (08:59)
[2017-02-01] MEDS: TRIHEXYPHENIDYL HCL 5 MG TABLET PO SCH ×2 (08:59→17:12)
[2017-02-01] MEDS: AmLODIPine BESYLATE 5 MG TABLET PO SCH (08:59)
[2017-02-01] MEDS: INSULIN DETEMIR 100 UNITS/ML SQ SCH ×2 (09:01→17:09)
[2017-02-01 11:37] LABS: GLUCOSE COMMENT 1 Received Meds; GLUCOSE,POINT OF CARE 340 MG/DL (70-110)
[2017-02-01 13:40] VITALS: BP 130/86
[2017-02-01] MEDS: LORazepam 2 MG TABLET PO PRN ×2 (13:43→22:14)
[2017-02-01 13:52] LABS: GLUCOSE COMMENT 1 Doctor Notified; GLUCOSE,POINT OF CARE 396 MG/DL (70-110)
[2017-02-01] MEDS ORDERED: INSULIN ASPART 100 UNITS/ML SQ ONE (13:55)
[2017-02-01 16:12] VITALS: BP 136/75
[2017-02-01] MEDS: FluPHENAZine HCL 5 MG TABLET PO PRN (17:12)
[2017-02-01 17:57] LABS: GLUCOSE COMMENT 1 Received Meds; GLUCOSE,POINT OF CARE 245 MG/DL (70-110)
[2017-02-01] MEDS: FluPHENAZine HCL 10 MG TABLET PO SCH (20:51)
[2017-02-01] MEDS: ZOLPIDEM TARTRATE 10 MG TABLET PO PRN (20:51)
[2017-02-01 20:52] LABS: GLUCOSE,POINT OF CARE 224 MG/DL (70-110)
[2017-02-02 06:03] LABS: GLUCOSE COMMENT 1 Repeated; GLUCOSE COMMENT 2 Received Meds; GLUCOSE,POINT OF CARE 161 MG/DL (70-110)
[2017-02-02] MEDS: LEVOTHYROXINE SODIUM 25 MCG TABLET PO SCH (06:16)
[2017-02-02] MEDS: INSULIN ASPART 100 UNITS/ML SQ SCH ×3 (06:18→16:41)
[2017-02-02 09:00] VITALS: BP 135/90
[2017-02-02] MEDS: INSULIN DETEMIR 100 UNITS/ML SQ SCH ×2 (09:35→16:41)
[2017-02-02] MEDS: AmLODIPine BESYLATE 5 MG TABLET PO SCH (09:36)
[2017-02-02] MEDS: TRIHEXYPHENIDYL HCL 5 MG TABLET PO SCH (09:36)
[2017-02-02] MEDS: DIVALPROEX SODIUM 500 MG ER TABLET PO SCH (09:36)
[2017-02-02 11:48] LABS: GLUCOSE COMMENT 1 Received Meds; GLUCOSE,POINT OF CARE 356 MG/DL (70-110)
[2017-02-02] MEDS ORDERED: PROMETHAZINE HCL 25 MG TABLET PO PRN (13:30)
[2017-02-02] MEDS ORDERED: LOPERAMIDE HCL 2 MG CAPSULE PO PRN (13:30)
[2017-02-02] MEDS ORDERED: MAG HYDROX/AL HYDROX/SIMETH ES 30 ML SUSPENSION UDCUP PO PRN (13:30)
[2017-02-02] MEDS ORDERED: MAGNESIUM HYDROXIDE SUSPENSION 30 ML UDCUP PO PRN (13:30)
[2017-02-02] MEDS ORDERED: GuaiFENesin/D-METHORPHAN [SUGAR-FREE] 200-20MG/10 ML SYRUP UDCUP PO PRN (13:30)
[2017-02-02] MEDS ORDERED: ACETAMINOPHEN 325 MG TABLET PO PRN (13:30)
[2017-02-02] MEDS: LORazepam 2 MG TABLET PO PRN (14:31)
[2017-02-02 14:47] LABS: GLUCOSE COMMENT 1 Doctor Notified; GLUCOSE COMMENT 2 Received Meds; GLUCOSE,POINT OF CARE 491 MG/DL (70-110)
[2017-02-02] MEDS ORDERED: INSULIN ASPART 100 UNITS/ML SQ ONE (15:00)
[2017-02-02 16:00] VITALS: BP 131/88
[2017-02-02] MEDS: THIAMINE HCL 100 MG TABLET PO SCH (16:42)
[2017-02-02] MEDS: HydrOXYzine PAMOATE 50 MG CAPSULE PO PRN (16:42)
[2017-02-02 17:07] LABS: GLUCOSE,POINT OF CARE 379 MG/DL (70-110)
[2017-02-02] MEDS: ZOLPIDEM TARTRATE 10 MG TABLET PO PRN (20:25)
[2017-02-02 20:57] LABS: GLUCOSE,POINT OF CARE 194 MG/DL (70-110)
[2017-02-03 06:13] LABS: GLUCOSE COMMENT 1 Received Meds; GLUCOSE,POINT OF CARE 192 MG/DL (70-110)
[2017-02-03] MEDS: LEVOTHYROXINE SODIUM 25 MCG TABLET PO SCH (06:14)
[2017-02-03] MEDS: INSULIN ASPART 100 UNITS/ML SQ SCH ×2 (06:16→16:40)
[2017-02-03 06:42] VITALS: BP 132/79
[2017-02-03 08:27] LABS: BASOPHILS % (AUTO) 0.4 % (0.0-2.0); HEMATOCRIT 46.6 % (41-53); HEMOGLOBIN 16.2 g/dL (13.5-17.5); LYMPHOCYTES # (AUTO) 3.4 K/uL (1.0-4.8); LYMPHOCYTES % (AUTO) 30.5 % (22.0-44.0); MEAN CORPUSCULAR HEMOGLOBIN 30.9 pg (26.0-34.0); MEAN CORPUSCULAR HGB CONC 34.7 G/dL (31.0-37.0); MEAN CORPUSCULAR VOLUME 89 fL (80-100); MONOCYTES # (AUTO) 0.6 K/uL (0.1-1.0); MONOCYTES % (AUTO) 5.5 % (2.0-9.0); NEUTROPHILS # (AUTO) 6.6 K/uL (1.8-7.7); NEUTROPHILS % (AUTO) 58.6 % (40.0-70.0); PLATELET COUNT (AUTO) 261 K/uL (150-450); RED BLOOD CELL COUNT(AUTO) 5.23 MIL/uL (4.50-5.90); RED CELL DISTRIBUTION WIDTH 12.8 % (11.5-14.5); WHITE BLOOD COUNT (AUTO) 11.2 K/uL (4.5-11.0)
[2017-02-03 08:38] VITALS: BP 114/64
[2017-02-03] MEDS: THIAMINE HCL 100 MG TABLET PO SCH ×2 (08:55→16:37)
[2017-02-03] MEDS: AmLODIPine BESYLATE 5 MG TABLET PO SCH (08:55)
[2017-02-03] MEDS: DIVALPROEX SODIUM 500 MG ER TABLET PO SCH (08:56)
[2017-02-03] MEDS: FOLIC ACID 1 MG TABLET PO SCH (08:56)
[2017-02-03] MEDS: MULTIVITAMINS WITH MINERALS, THERAPEUTIC TABLET PO SCH (08:56)
[2017-02-03] MEDS: LORazepam 2 MG TABLET PO PRN ×2 (08:56→16:37)
[2017-02-03] MEDS ORDERED: CloZAPine 25 MG TABLET PO SCH (09:00)
[2017-02-03] MEDS: INSULIN DETEMIR 100 UNITS/ML SQ SCH ×2 (09:04→16:39)
[2017-02-03] MEDS ORDERED: INSULIN ASPART 100 UNITS/ML SQ SCH (11:30)
[2017-02-03 12:28] LABS: GLUCOSE,POINT OF CARE 324 MG/DL (70-110)
[2017-02-03 16:00] VITALS: BP 130/84
[2017-02-03] MEDS: HydrOXYzine PAMOATE 50 MG CAPSULE PO PRN (16:37)
[2017-02-03 17:07] LABS: GLUCOSE,POINT OF CARE 301 MG/DL (70-110)
[2017-02-03 21:22] LABS: GLUCOSE,POINT OF CARE 298 MG/DL (70-110)
[2017-02-04] MEDS: INSULIN ASPART 100 UNITS/ML SQ SCH (06:51)
[2017-02-04] MEDS: LEVOTHYROXINE SODIUM 25 MCG TABLET PO SCH (06:51)
[2017-02-04 06:52] LABS: GLUCOSE COMMENT 1 Received Meds; GLUCOSE COMMENT 2 Doctor Notified; GLUCOSE,POINT OF CARE 324 MG/DL (70-110)
[2017-02-04 07:01] VITALS: BP 126/81
[2017-02-04] MEDS: DIVALPROEX SODIUM 500 MG ER TABLET PO SCH (08:29)
[2017-02-04] MEDS: AmLODIPine BESYLATE 5 MG TABLET PO SCH (08:30)
[2017-02-04] MEDS: FOLIC ACID 1 MG TABLET PO SCH (08:30)
[2017-02-04] MEDS: THIAMINE HCL 100 MG TABLET PO SCH (08:30)
[2017-02-04] MEDS: MULTIVITAMINS WITH MINERALS, THERAPEUTIC TABLET PO SCH (08:30)
[2017-02-04 08:34] VITALS: BP 132/68
[2017-02-04] MEDS: INSULIN DETEMIR 100 UNITS/ML SQ SCH (08:39)
[2017-02-04] MEDS ORDERED: CloZAPine 25 MG TABLET PO SCH ×2 (09:00→21:00)
[2017-02-04] MEDS ORDERED: INSULIN ASPART 100 UNITS/ML SQ SCH (11:30)
[2017-02-05] MEDS ORDERED: CloZAPine 25 MG TABLET PO SCH ×2 (09:00→21:00)
[2017-02-06] MEDS ORDERED: CloZAPine 25 MG TABLET PO SCH (09:00)
[2017-02-08] MEDS ORDERED: CloZAPine 25 MG TABLET PO SCH (09:00)
[2017-02-08] MEDS ORDERED: CloZAPine 100 MG TABLET PO SCH (21:00)
[2017-02-09] MEDS ORDERED: CloZAPine 25 MG TABLET PO SCH (09:00)
[2017-02-09] MEDS ORDERED: CloZAPine 100 MG TABLET PO SCH (21:00)
[2017-02-10] MEDS ORDERED: CloZAPine 25 MG TABLET PO SCH (09:00)
[2017-02-10] MEDS ORDERED: CloZAPine 100 MG TABLET PO SCH (21:00)
[2017-02-11] MEDS ORDERED: CloZAPine 100 MG TABLET PO SCH (09:00)
[2017-02-13] MEDS ORDERED: CloZAPine 25 MG TABLET PO SCH (09:00)
[2017-02-13] MEDS ORDERED: CloZAPine 100 MG TABLET PO SCH (21:00)
[2017-02-14] MEDS ORDERED: CloZAPine 25 MG TABLET PO SCH (09:00)
[2017-02-14] MEDS ORDERED: CloZAPine 100 MG TABLET PO SCH (21:00)
[2017-02-15] MEDS ORDERED: CloZAPine 100 MG TABLET PO SCH ×2 (09:00→21:00)
== END 2017-02-04 10:40 | disposition home or self-care (01) | DRG 885 ==
LOC: EMS 22:21 → 3EC 01-30 13:53 → B3A 01-30 13:53
PROVIDERS: ADMIT Psychiatry & Neurology Psychiatry; ATTEND Psychiatry & Neurology Psychiatry
DX: F25.9 Schizoaffective disorder, unspecified (principal); E11.9 Type 2 diabetes mellitus without complications; E03.9 Hypothyroidism, unspecified; Z28.21 Immunization not carried out because of patient refusal; I10 Essential (primary) hypertension; F41.9 Anxiety disorder, unspecified; F32.9 Major depressive disorder, single episode, unspecified; Z91.048 Other nonmedicinal substance allergy status; Z91.19 Patient's noncompliance with other medical treatment and regimen
CPT/HCPCS: 82962; 87081; 96372; 99285; G0480; J1200; J1630; J1815; J2060